=== PATIENT | male | born 1940 | race Caucasian/White ===

== ENCOUNTER 2016-11-11 09:18 | Inpatient (IN) | payer OTHER ==
[~2016-11-11] VITALS: Ht 177.8 cm; Wt 98.3 kg
[2016-11-11 10:26] LABS: BASO % 0.6 %; BASO ABS # 0.04 K/uL (0-0.2); COMPLETE YES; EOS % 1.4 %; HEMATOCRIT 44.9 % (42-52); LYMPH % 26.7 %; LYMPH ABS # 1.66 K/uL (1.2-3.4); MEAN CELL VOLUME 90.9 fL (80-100); MEAN CORPUSCULAR HEMOGLOBIN 32.2 pg (25-34); MEAN CORPUSCULAR HGB CONC 35.4 g/dl (32-36); MEAN PLATELET VOLUME 9.6 fL (7.4-10.4); MONO % 11.6 %; NEUT % 59.7 %; PLATELET COUNT 279 K/uL (130-400); RED BLOOD COUNT 4.94 M/uL (4.7-6.1); WHITE BLOOD COUNT 6.21 K/uL (4.8-10.8)
[2016-11-11 10:31] LABS: PROTHROMBIN TIME (PATIENT) 10.9 SECONDS (9.0-12.0)
[2016-11-11 10:33] LABS: BUN/CREATININE RATIO 11.5 (10-20); CALCIUM 9.2 mg/dl (8.5-10.1); CREATININE 1.2 mg/dl (0.60-1.40); POTASSIUM 3.8 mmol/L (3.5-5.1)
--- NOTE | 2016-11-11 10:38 | DIAGNOSTIC IMAGING REPORT ---
CT HEAD WITHOUT CONTRAST (CT) CLINICAL HISTORY: Stroke HEAD PAIN COMPARISON STUDY: No previous studies for comparison. TECHNIQUE: Axial CT of the brain is performed from the vertex to the skull base. IV contrast was not administered for this examination. CT DOSE: 537.48 mGy.cm FINDINGS: No intra or extra-axial mass lesions are visualized. There is no CT evidence of acute cortical infarction. There is no evidence of midline shift. There is no acute hemorrhage. No calvarial fractures are visualized. There is no evidence of pathologic ventricular dilatation. There is no evidence of acute sinusitis IMPRESSION: No acute intracranial findings. Electronically signed by: Oscar Leal M.D. 11/11/2016 10:36 AM Dictated Date/Time: 11/11/2016 10:35 AM
[2016-11-11 10:46] LABS: POINT OF CARE TROPONIN I < 0.030 ng/ml (0-0.045)
[2016-11-11] MEDS ORDERED: OPTIRAY 320 IV PRN (11:00)
[2016-11-11] MEDS ORDERED: ASPI81TA28 PO (11:03)
[2016-11-11] MEDS ORDERED: LISI-787 PO (11:03)
[2016-11-11] MEDS ORDERED: NTRGSL/4 UT (11:03)
[2016-11-11] MEDS ORDERED: METO25TA3 PO (11:03)
[2016-11-11] MEDS ORDERED: LPT/40 PO (11:03)
[2016-11-11] MEDS ORDERED: AMLO-110 PO (11:03)
--- NOTE | 2016-11-11 11:32 | DIAGNOSTIC IMAGING REPORT ---
CHEST CTA for PULMONARY ARTERIES CT DOSE: 555.84 mGy.cm HISTORY: Atypical chest pain. TECHNIQUE: Multiaxial CT images of the chest were performed following the intravenous administration of contrast to evaluate the pulmonary arteries. Maximal intensity projection images were also obtained. COMPARISON STUDY: None. FINDINGS: Normal caliber thoracic aorta with no evidence for dissection. The distal descending thoracic aorta is not well opacified which results in nondiagnostic evaluation for a dissection. Mild calcified plaque within the aorta. No pleural or pericardial effusions. Small hiatus hernia. The unenhanced liver, spleen, and adrenal glands are unremarkable. Colonic diverticulosis. Poststernotomy changes. No mediastinal or hilar lymphadenopathy. No filling defects within the pulmonary arteries to suggest pulmonary embolus. No pneumothorax. The central airways are patent. There are 2 subpleural nodular densities along the right minor fissure with the largest measuring 5 mm. IMPRESSION: 1. No evidence for pulmonary embolus. 2. There are 2 subpleural nodular densities within the right minor fissure within largest measuring 5 mm. Please refer to the chart below for recommended follow-up. Please refer to below summary of Fleischner criteria recommendations for follow-up of incidental CT nodules (Palmira Talley, Guidelines for management of small pulmonary nodules detected on CT scans: A statement from the Fleischner Society, Radiology 237: [phone].) SOLID NODULES Solitary nodule size: <6 mm * Low risk patients: no follow-up needed * high risk patients: optional CT at 12 months Solitary nodule size: 6-8 mm * Low risk patients: follow-up at 6-12 months, then consider further follow-up at 18-24 months * high risk patients: initial follow-up CT at 6-12 months and then at 18-24 months if no change Solitary nodule size: >8 mm * either low or high risk patients - consider follow-up CT at 3 months, and/or CT-PET, and/or biopsy Multiple nodules size: <6 mm * Low risk patients: no routine follow-up * high risk patients: optional CT at 12 months Multiple nodules size: 6-8 mm * Low risk patients: follow-up at 3-6 months, then consider further follow-up at 18-24 months * high risk patients: follow-up at 3-6 months, then at 18-24 months if no change Multiple nodules size: >8 mm * Low risk patients: follow-up at 3-6 months, then consider further follow-up at 18-24 months * high risk patients: follow-up at 3-6 months, then at 18-24 months if no change Note: newly detected indeterminate nodule in persons 35 years of age or older. * Low risk patients: minimal or absent history of smoking and/or other known risk factors * high risk patients: history of smoking or of other known risk factors (e.g. first degree relative with lung cancer, or exposure to asbestos, radon, uranium) * if a nodule up to 8 mm is partly solid or is ground glass further follow-up is required after 24 months to exclude possible slow growing adenocarcinoma (FRANCINE) SUBSOLID NODULES Solitary pure ground-glass nodule * nodule size <6 mm - no CT follow-up required * nodule size >=6 mm - follow-up CT at 6-12 months, then every 2 years until 5 years Solitary part-solid nodule * nodule size <6 mm - no CT follow-up required * nodule size >=6 mm - follow-up CT at 3-6 months. If unchanged, and solid component remains <6 mm, then annual follow-up for 5 years Multiple subsolid nodules * nodule size <6 mm - follow-up CT at 3-6 months, consider further follow-up at 2 and 4 years if stable * nodule size >=6 mm - follow-up CT at 3-6 months, subsequent management based on the most suspicious nodule(s) Electronically signed by: Viktor Shirley M.D. 11/11/2016 11:31 AM Dictated Date/Time: 11/11/2016 11:19 AM
[2016-11-11] MEDS ORDERED: ONDANSETRON INJ 2 MG/ML 2 ML VIAL IV STA (11:34)
[2016-11-11] MEDS ORDERED: MoRPHine SULFATE 4 MG/ML 1 ML CARP\\VIAL IV STA (11:34)
[2016-11-11] MEDS ORDERED: NITROGLYCERIN 0.4 MG SL PER TAB CHARGE SL PRN (12:45)
[2016-11-11] MEDS ORDERED: ONDANSETRON INJ 2 MG/ML 2 ML VIAL IV PRN (12:45)
[2016-11-11] MEDS ORDERED: CHOL1TAB PO (13:00)
[2016-11-11] MEDS ORDERED: PHARMACIST DISCHARGE MED REC CONSULT PRN (13:00)
[2016-11-11 13:58] LABS: ESTIMATED AVERAGE GLUCOSE 114 mg/dl; HA1C FLAG Normal (Normal)
--- NOTE | 2016-11-11 15:08 | DIAGNOSTIC IMAGING REPORT ---
MRI OF THE BRAIN WITHOUT CONTRAST CLINICAL HISTORY: Stroke RIGHT FACIAL PAIN AND NUMBNESS. COMPARISON STUDY: Noncontrast head CT dated 11/11/2016 FINDINGS: Sagittal T1, axial diffusion, proton density and T2 weighted axial, coronal FLAIR, and axial T1-weighted images were acquired. No intra or extra-axial mass lesions are visualized Axial diffusion-weighted images reveal no evidence of acute or subacute infarction. There is no evidence of ventricular dilatation. Proton density T2-weighted and FLAIR images reveal no significant intraparenchymal signal abnormalities. There are no abnormal flow voids. There is minor dependent mucosal thickening/fluid within the left maxillary sinus. IMPRESSION: Normal noncontrast MRI of the brain for age. Electronically signed by: Oscar Leal M.D. 11/11/2016 3:07 PM Dictated Date/Time: 11/11/2016 3:04 PM
--- NOTE | 2016-11-11 15:08 | DIAGNOSTIC IMAGING REPORT ---
MR ANGIOGRAM OF THE BRAIN CLINICAL HISTORY: Strokelike symptoms. COMPARISON STUDY: MRI of the brain performed concurrently on 11/11/2016. TECHNIQUE: 3-D [id number] MR angiography of the intracranial circulation is performed. 3-D tumble views are created and assessed. IV contrast was not administered for this examination. FINDINGS: The internal carotid arteries are widely patent bilaterally, as are the anterior and middle cerebral arteries. The vertebrobasilar system and posterior cerebral arteries are widely patent. The left vertebral artery is dominant and the right vertebral artery is diminutive. There is no aneurysm, high-grade stenosis, or focal vessel cutoff seen throughout the intracranial circulation. The brain parenchyma is normal as visualized. IMPRESSION: Unremarkable MR angiogram of the brain. Electronically signed by: Isaac Chinchilla M.D. 11/11/2016 3:07 PM Dictated Date/Time: 11/11/2016 3:04 PM
--- NOTE | 2016-11-11 15:10 | DIAGNOSTIC IMAGING REPORT ---
NECK MRA HISTORY: CVA TECHNIQUE: [id number] MRA of the neck was performed without intravenous contrast. All measurements were calculated based on NASCET criteria. COMPARISON STUDY: None. FINDINGS: The aortic arch and proximal great vessels are widely patent. There is no significant stenosis, occlusion, or dissection identified within the bilateral common carotid, internal carotid, or left vertebral arteries. The right vertebral artery is severely hypoplastic and not well visualized. Mild atherosclerotic plaque within the bilateral carotid bulbs. IMPRESSION: No significant stenosis, occlusion, or dissection identified within the carotid or left vertebral arteries. The right vertebral artery is severely hypoplastic and not well visualized. Electronically signed by: Viktor Shirley M.D. 11/11/2016 3:09 PM Dictated Date/Time: 11/11/2016 3:05 PM
[2016-11-11] MEDS: ACETAMINOPHEN 325 MG TAB PO PRN (15:46)
[2016-11-11 15:57] VITALS: BP 137/86; PULSE 61; TEMP 36.5; O2SAT 93; Ht 177.8 cm; Wt 98.3 kg
--- NOTE | 2016-11-11 16:18 | Neurology Consultation ---
Neurology Consultation Date of Consultation: Nov 11, 2016. Attending Physician: Yonathan Bustillos MD Primary Care Physician: Lexie Hassan D.O. Reason for Consultation: headache, right facial numbness History of Present Illness Source: patient Oni is a 76 year old who has a PMH HTN, DL, coronary artery disease. He presented to the ED from work with stabling pain he states started at the top of his head and radiated to his jaw. He states the pain was momentary but the numbness is still there. He state his has trigeminal neuralgia and he thinks that may be what he has. He states he has some numbness in his arms and feet but he has had that for years. He states he never gets headaches. He is not diabetic. He is a former smoker and ETOH use but quit 20 years ago. denies head injury, neck injury, falls, vision changes, slurred speech, SOB, abdominal pain, weakness, swallowing difficulty, pain with chewing or brushing hair or teeth,N,V. +chest pain for 5 years, +feeling loss in feet Social History Smoking Status: Former smoker Alcohol Use: former heavy EtOH use Drug Use: none Marital Status: Housing Status: lives with family Occupation Status: employed Allergies Coded Allergies: No Known Allergies (Unverified , 11/11/16) Current Inpatient Medications Current Inpatient Medications Medications (Trade) Dose Ordered Sig/Mo Route Start Time Stop Time Status Last Admin Dose Admin Ioversol (Optiray 320) 100 ml UD PRN IV 11/11/16 11:00 11/15/16 10:59 Acetaminophen (Tylenol Tab) 650 mg Q4H PRN PO 11/11/16 12:45 12/11/16 12:44 Ondansetron HCl (Zofran Inj) 4 mg Q6H PRN IV 11/11/16 12:45 12/11/16 12:44 Nitroglycerin (Nitrostat Tab) 0.4 mg UD PRN SL 11/11/16 12:45 12/11/16 12:44 Miscellaneous Information (Pharmacist Discharge Med Rec Consult) 1 ea UD PRN N/A 11/11/16 13:00 12/11/16 12:59 Amlodipine Besylate (Norvasc Tab) 5 mg DAILY PO 11/12/16 09:00 12/12/16 08:59 Aspirin (Ecotrin Tab) 81 mg DAILY PO 11/12/16 09:00 12/12/16 08:59 Atorvastatin Calcium (Lipitor Tab) 40 mg DAILY PO 11/12/16 09:00 12/12/16 08:59 Cholecalciferol (Vitamin D Tab) 400 inter.unit DAILY PO 11/12/16 09:00 12/12/16 08:59 HCTZ/Lisinopril (Prinzide 20-12.5MG Tab) 2 tab DAILY PO 11/12/16 09:00 12/12/16 08:59 Metoprolol Succinate (Toprol Xl Tab) 25 mg DAILY PO 11/12/16 09:00 12/12/16 08:59 Physical Exam Vital Signs (Past 24 Hrs): Date Time Temp Pulse Resp B/P (MAP) Pulse Ox O2 Delivery O2 Flow Rate FiO2 11/11/16 14:20 78 20 145/80 97 11/11/16 13:55 66 16 146/80 98 Room Air 11/11/16 13:01 52 11/11/16 11:37 62 16 140/72 97 Room Air 11/11/16 10:46 72 18 137/84 98 Room Air 11/11/16 09:49 72 11/11/16 09:45 98 Room Air 11/11/16 09:45 98 Room Air 11/11/16 09:25 36.7 79 18 166/94 95 Room Air Physical Exam: Constitutional: appearance nourished, healthy and normal Ears, Nose, Mouth and Throat: mucous membranes moist, no injection and skin normal, eyes normal Cardiovascular: normal S-1 and S-2 and regular rate and rhythm Respiratory: clear to auscultation (CTA) and no rales, rhonchi or wheeze Musculoskeletal: no peripheral edema and good distal pulses Skin: no stigmata of neurocutaneous disease noted and normal and intact Eyes: extraocular muscles intact (EOMI) and pupils equal, round and reactive to light (PERRL) NEUROLOGIC EXAMINATION: Mental status: Alert and interactive Oriented to full date and location Oriented to person Speech fluent with no evidence of aphasia Cranial Nerves smile eye brow raise symmetric, tongue midline Reflexes: Deep tendon reflexes were symmetrical and graded 2/5. Plantar responses were flexor. Sensory: decreased sensation to vibration intact GT proprioception Coordination: Romberg absent slight sway Gait/Stance: Posture normal. Gait normal: with steady with steps, base, turning, and tandem gait. Motor: Negative for pronator drift of out stretched arms with eyes closed. Strength: biceps triceps hand chief commercial officer 5/5 bilaterally, hip flex plantar flex ext 5/5 bilaterally Laboratory Results Past 24 Hours: 11/11/16 09:35 Red Blood Count 4.94, Mean Corpuscular Volume 90.9, Mean Corpuscular Hemoglobin 32.2, Mean Corpuscular Hemoglobin Concent 35.4, Mean Platelet Volume 9.6, Neutrophils (%) (Auto) 59.7, Lymphocytes (%) (Auto) 26.7, Monocytes (%) (Auto) 11.6, Eosinophils (%) (Auto) 1.4, Basophils (%) (Auto) 0.6, Neutrophils # (Auto ) 3.70, Lymphocytes # (Auto) 1.66, Monocytes # (Auto) 0.72, Eosinophils # (Auto ) 0.09, Basophils # (Auto) 0.04 11/11/16 09:35 Test 11/11/16 09:35 11/11/16 10:27 White Blood Count 6.21 K/uL (4.8-10.8) Red Blood Count 4.94 M/uL (4.7-6.1) Hemoglobin 15.9 g/dL (14.0-18.0) Hematocrit 44.9 % (42-52) Mean Corpuscular Volume 90.9 fL (80-100) Mean Corpuscular Hemoglobin 32.2 pg (25-34) Mean Corpuscular Hemoglobin Concent 35.4 g/dl (32-36) Platelet Count 279 K/uL (130-400) Mean Platelet Volume 9.6 fL (7.4-10.4) Neutrophils (%) (Auto) 59.7 % Lymphocytes (%) (Auto) 26.7 % Monocytes (%) (Auto) 11.6 % Eosinophils (%) (Auto) 1.4 % Basophils (%) (Auto) 0.6 % Neutrophils # (Auto) 3.70 K/uL (1.4-6.5) Lymphocytes # (Auto) 1.66 K/uL (1.2-3.4) Monocytes # (Auto) 0.72 K/uL (0.11-0.59) Eosinophils # (Auto) 0.09 K/uL (0-0.5) Basophils # (Auto) 0.04 K/uL (0-0.2) RDW Standard Deviation 42.4 fL (36.4-46.3) RDW Coefficient of Variation 12.8 % (11.5-14.5) Immature Granulocyte % (Auto) 0.0 % Immature Granulocyte # (Auto) 0.00 K/uL (0.00-0.02) Prothrombin Time 10.9 SECONDS (9.0-12.0) Prothromb Time International Ratio 1.0 (0.9-1.1) Activated Partial Thromboplast Time 26.6 SECONDS (21.0-31.0) Partial Thromboplastin Ratio 1.0 Anion Gap 7.0 mmol/L (3-11) Est Creatinine Clear Calc Drug Dose 63.6 ml/min Estimated GFR () 68.6 Estimated GFR (Non- 59.2 BUN/Creatinine Ratio 11.5 (10-20) Estimated Average Glucose 114 mg/dl Hemoglobin A1c 5.6 % (4.5-5.6) Calcium Level 9.2 mg/dl (8.5-10.1) Bedside D-Dimer > 450 ng/mlFEU (0-450) Bedside Troponin I < 0.030 ng/ml (0-0.045) Imaging MRI brain Normal noncontrast MRI of the brain for age. MRA neck- No significant stenosis, occlusion, or dissection identified within the carotid or left vertebral arteries. The right vertebral artery is severely hypoplastic and not well visualized. MRA head- Unremarkable MR angiogram of the brain. CTA chest abdomen- No evidence for pulmonary embolus. 2. There are 2 subpleural nodular densities within the right minor fissure within largest measuring 5 mm. Please refer to the chart below for recommended follow-up. Impression 76 year old male with lighting bolt headache and right face numbness Plan 1. MRI MRA head and neck normal for patients age 2. sed rate order r/o temporal arteritis although states no tenderness with palpation 3. chest pain-work up per primary team elevated d dimer 4. known peripheral neuropathy 5. patient with ice pick type headache- no history of migraines 6. cardiology for chest pain further recommendations to follow I have seen and discussed above patient with Dr Ophelia Clarke, neurology Pt without hx of headache, had a 1 sec severe pain from R vertex to R jaw associated with numbness in the R jaw lasting 1 sec (however face still does not feel the same). No n,v,other cranial sx. Was not exerting self or twisting head or neck. No jaw pain, has been well. [place] some imbalance the following day. No FMH aneurysm. Exam neck supple, No TA tenderness or cranial tenderness. PERRL, ON normal, no retinal hemorrhage, nml EOMI, facial sensation is intact, full strength, symm reflexes, nml FNF-HS, gait, tandem, Romberg neg. CT, MRI, MRA neg. Etiol is unknown. Ice-pick type headaches can occur in migraineurs, although pt no hx of migraine. The brevity and nml imaging and pt exam argue against aneurysmal SAH. I did discuss possibly performing an LP with the pt and he will give that some thought. Unlikely a headache disorder with neuralgiform pain given the lack of autonomic sx. I would complete a vascular sánchez, check an ESR (doubt TA) and monitor.The pt tells me he has had several occasions of unusual sx that no one was able to determine etiology including tingling acrossed the chest. TAB Clarke MD
[2016-11-11 16:47] VITALS: BP 134/75; PULSE 74
--- NOTE | 2016-11-11 17:05 | EMERGENCY ROOM VISIT NOTE ---
History Report prepared by Hafsa: Karlo Russ Under the Supervision of: Dr. Beto Duron M.D. First contact with patient: 10:02 Chief Complaint: CHEST PAIN Stated Complaint: CHEST PAIN, HEAD PAIN History of Present Illness The patient is a 76 year old male who presents to the Emergency Room with complaints of constant chest pain that began 1 year ago. He rates his pain a 4/ 10 in severity. His pain is mostly on the left side, but he occasionally experiences it on the right as well. He notes shortness of breath associated with his chest pain. His pain is not affected by exertion. His pain does not radiate down his arms, but is present in his left upper back. 7 years ago, the patient had a triple bypass surgery. He has had some chest pain since then. He notes that the pain has been constant over the past 2 months. Last year, he was seen in [place] for a cardiac stress test. He failed this test and was told that he had a blockage in his heart that did not need emergency surgery. He was placed onto an Aspirin regimen. 2 month ago, he went to [facility] to make sure everything was at baseline with his pain. 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 Yesterday morning, he experienced a completely new symptom which was a right sided headache. His pain has now resolved. However, he notes that he now is experiencing numbness to his right face that is somewhat present in his right arm as well. He denies any trouble with his speech , fevers, vomiting, diarrhea, or abdominal pain. He is having some difficulty walking secondary to feeling off balance. He has a past medical history of hypertension. He has not taken any Nitroglycerin this morning. Source of History: patient Onset: 7 years ago Position: chest Symptom Intensity: 4/10 Quality: dull Timing: constant Associated Symptoms: + headache, + SOB, + back pain, + numbness, No fevers, No vomiting, No abdominal pain, No diarrhea Review of Systems See HPI for pertinent positives & negatives. A total of 10 systems reviewed and were otherwise negative. Past Medical & Surgical Medical Problems: (1) CAD (coronary artery disease) (2) HTN (hypertension) Surgical Problems: (1) History of heart bypass surgery (2) History of incisional hernia repair Family History Omitted secondary to age. Social History Smoking Status: Former Smoker Drug Use: none Marital Status: Housing Status: lives with significant other Occupation Status: retired Current/Historical Medications Scheduled Amlodipine (Norvasc), 5 MG PO DAILY Aspirin (Aspirin Ec), 81 MG PO DAILY Atorvastatin (Lipitor), 40 MG PO DAILY Cholecalciferol (Vitamin D-3), 1 TAB PO DAILY Lisinopril/Hctz (Zestoretic 20MG/12.5MG), 2 TAB PO DAILY Metoprolol Succinate (Toprol Xl), 25 MG PO DAILY Nitroglycerin (Nitrostat), 0.4 MG UT PRN Allergies Coded Allergies: No Known Allergies (Unverified , 11/11/16) Physical Exam Vital Signs Date Time Temp Pulse Resp B/P (MAP) Pulse Ox O2 Delivery O2 Flow Rate FiO2 11/11/16 11:37 62 16 140/72 97 Room Air 11/11/16 10:46 72 18 137/84 98 Room Air 11/11/16 09:49 72 11/11/16 09:45 98 Room Air 11/11/16 09:45 98 Room Air 11/11/16 09:25 36.7 79 18 166/94 95 Room Air Physical Exam Constitutional: Vital signs reviewed. Eyes: Pupils are equal round reactive to light. Conjunctiva are noninjected. ENT: Pharynx is clear without erythema or exudate. Mucous membranes are moist. Neck supple without meningeal signs. Respiratory: Clear to auscultation bilaterally. Breath sounds are equal bilaterally. Cardiovascular: Regular rate and rhythm. No rubs or gallops. GI: Soft, nondistended and nontender. Bowel sounds are present. Musculoskeletal: No peripheral edema. No lower extremity tenderness. Integumentary: No cyanosis. Neurological: The patient is awake and alert. Cranial nerves II-XII are intact. Motor is 5 out of 5 all extremities. Sensation is intact to light touch all extremities. Normal speech. No pronator drift. No limb ataxia. Psychiatric: Normal affect. Medical Decision & Procedures ER Provider Diagnostic Interpretation: Radiology results as stated below per my review and the radiologist's interpretation: CT HEAD WITHOUT CONTRAST (CT) CLINICAL HISTORY: Stroke HEAD PAIN COMPARISON STUDY: No previous studies for comparison. TECHNIQUE: Axial CT of the brain is performed from the vertex to the skull base. IV contrast was not administered for this examination. CT DOSE: 537.48 mGy.cm FINDINGS: No intra or extra-axial mass lesions are visualized. There is no CT evidence of acute cortical infarction. There is no evidence of midline shift. There is no acute hemorrhage. No calvarial fractures are visualized. There is no evidence of pathologic ventricular dilatation. There is no evidence of acute sinusitis IMPRESSION: No acute intracranial findings. Electronically signed by: Oscar Leal M.D. 11/11/2016 10:36 AM Dictated Date/Time: 11/11/2016 10:35 AM CHEST CTA for PULMONARY ARTERIES CT DOSE: 555.84 mGy.cm HISTORY: Atypical chest pain. TECHNIQUE: Multiaxial CT images of the chest were performed following the intravenous administration of contrast to evaluate the pulmonary arteries. Maximal intensity projection images were also obtained. COMPARISON STUDY: None. FINDINGS: Normal caliber thoracic aorta with no evidence for dissection. The distal descending thoracic aorta is not well opacified which results in nondiagnostic evaluation for a dissection. Mild calcified plaque within the aorta. No pleural or pericardial effusions. Small hiatus hernia. The unenhanced liver, spleen, and adrenal glands are unremarkable. Colonic diverticulosis. Poststernotomy changes. No mediastinal or hilar lymphadenopathy. No filling defects within the pulmonary arteries to suggest pulmonary embolus. No pneumothorax. The central airways are patent. There are 2 subpleural nodular densities along the right minor fissure with the largest measuring 5 mm. IMPRESSION: 1. No evidence for pulmonary embolus. 2. There are 2 subpleural nodular densities within the right minor fissure within largest measuring 5 mm. Please refer to the chart below for recommended follow-up. Please refer to below summary of Fleischner criteria recommendations for follow-up of incidental CT nodules (Palmira Talley, Guidelines for management of small pulmonary nodules detected on CT scans: A statement from the Fleischner Society, Radiology 237: [phone].) SOLID NODULES Solitary nodule size: <6 mm * Low risk patients: no follow-up needed * high risk patients: optional CT at 12 months Solitary nodule size: 6-8 mm * Low risk patients: follow-up at 6-12 months, then consider further follow-up at 18-24 months * high risk patients: initial follow-up CT at 6-12 months and then at 18-24 months if no change Solitary nodule size: >8 mm * either low or high risk patients - consider follow-up CT at 3 months, and/or CT-PET, and/or biopsy Multiple nodules size: <6 mm * Low risk patients: no routine follow-up * high risk patients: optional CT at 12 months Multiple nodules size: 6-8 mm * Low risk patients: follow-up at 3-6 months, then consider further follow-up at 18-24 months * high risk patients: follow-up at 3-6 months, then at 18-24 months if no change Multiple nodules size: >8 mm * Low risk patients: follow-up at 3-6 months, then consider further follow-up at 18-24 months * high risk patients: follow-up at 3-6 months, then at 18-24 months if no change Note: newly detected indeterminate nodule in persons 35 years of age or older. * Low risk patients: minimal or absent history of smoking and/or other known risk factors * high risk patients: history of smoking or of other known risk factors (e.g. first degree relative with lung cancer, or exposure to asbestos, radon, uranium) * if a nodule up to 8 mm is partly solid or is ground glass further follow-up is required after 24 months to exclude possible slow growing adenocarcinoma (FRANCINE) SUBSOLID NODULES Solitary pure ground-glass nodule * nodule size <6 mm - no CT follow-up required * nodule size >=6 mm - follow-up CT at 6-12 months, then every 2 years until 5 years Solitary part-solid nodule * nodule size <6 mm - no CT follow-up required * nodule size >=6 mm - follow-up CT at 3-6 months. If unchanged, and solid component remains <6 mm, then annual follow-up for 5 years Multiple subsolid nodules * nodule size <6 mm - follow-up CT at 3-6 months, consider further follow-up at 2 and 4 years if stable * nodule size >=6 mm - follow-up CT at 3-6 months, subsequent management based on the most suspicious nodule(s) Electronically signed by: Viktor Shirley M.D. 11/11/2016 11:31 AM Dictated Date/Time: 11/11/2016 11:19 AM Laboratory Results 11/11/16 09:35 Red Blood Count 4.94, Mean Corpuscular Volume 90.9, Mean Corpuscular Hemoglobin 32.2, Mean Corpuscular Hemoglobin Concent 35.4, Mean Platelet Volume 9.6, Neutrophils (%) (Auto) 59.7, Lymphocytes (%) (Auto) 26.7, Monocytes (%) (Auto) 11.6, Eosinophils (%) (Auto) 1.4, Basophils (%) (Auto) 0.6, Neutrophils # (Auto ) 3.70, Lymphocytes # (Auto) 1.66, Monocytes # (Auto) 0.72, Eosinophils # (Auto ) 0.09, Basophils # (Auto) 0.04 11/11/16 09:35 Test 11/11/16 09:35 11/11/16 10:27 White Blood Count 6.21 K/uL (4.8-10.8) Red Blood Count 4.94 M/uL (4.7-6.1) Hemoglobin 15.9 g/dL (14.0-18.0) Hematocrit 44.9 % (42-52) Mean Corpuscular Volume 90.9 fL (80-100) Mean Corpuscular Hemoglobin 32.2 pg (25-34) Mean Corpuscular Hemoglobin Concent 35.4 g/dl (32-36) Platelet Count 279 K/uL (130-400) Mean Platelet Volume 9.6 fL (7.4-10.4) Neutrophils (%) (Auto) 59.7 % Lymphocytes (%) (Auto) 26.7 % Monocytes (%) (Auto) 11.6 % Eosinophils (%) (Auto) 1.4 % Basophils (%) (Auto) 0.6 % Neutrophils # (Auto) 3.70 K/uL (1.4-6.5) Lymphocytes # (Auto) 1.66 K/uL (1.2-3.4) Monocytes # (Auto) 0.72 K/uL (0.11-0.59) Eosinophils # (Auto) 0.09 K/uL (0-0.5) Basophils # (Auto) 0.04 K/uL (0-0.2) RDW Standard Deviation 42.4 fL (36.4-46.3) RDW Coefficient of Variation 12.8 % (11.5-14.5) Immature Granulocyte % (Auto) 0.0 % Immature Granulocyte # (Auto) 0.00 K/uL (0.00-0.02) Prothrombin Time 10.9 SECONDS (9.0-12.0) Prothromb Time International Ratio 1.0 (0.9-1.1) Activated Partial Thromboplast Time 26.6 SECONDS (21.0-31.0) Partial Thromboplastin Ratio 1.0 Anion Gap 7.0 mmol/L (3-11) Est Creatinine Clear Calc Drug Dose 63.6 ml/min Estimated GFR () 68.6 Estimated GFR (Non- 59.2 BUN/Creatinine Ratio 11.5 (10-20) Estimated Average Glucose 114 mg/dl Hemoglobin A1c 5.6 % (4.5-5.6) Calcium Level 9.2 mg/dl (8.5-10.1) Bedside D-Dimer > 450 ng/mlFEU (0-450) Bedside Troponin I < 0.030 ng/ml (0-0.045) Laboratory results as reviewed by me. Medications Administered Medications (Trade) Dose Ordered Sig/Mo Route Start Time Stop Time Status Last Admin Dose Admin Morphine Sulfate (MoRPHine SULFATE INJ) 4 mg NOW STAT IV 11/11/16 11:34 11/11/16 11:35 DC 11/11/16 11:57 4 MG Ondansetron HCl (Zofran Inj) 4 mg NOW STAT IV 11/11/16 11:34 11/11/16 11:35 DC 11/11/16 11:57 4 MG ECG Indication: chest pain Rate (beats per minute): 64 Rhythm: sinus rhythm Findings: Q waves (Lead 3), other (Sinus arrhythmia) ED Course 1002: The patient was evaluated in room B10. A complete history and physical exam was performed. 1102: I reassessed the patient at this time. We discussed his test results. I will be ordering a CT scan for further testing. 1134: Ordered Zofran Inj 4 mg IV, Morphine Sulfate 4 mg IV 1136: The patient is still having his chest pain that he rates a 4/10 in severity. He still has a headache with numbness to his right side. We discussed his results, including his pulmonary nodule. He will be seen as an inpatient for further treatment. 1210: I spoke with Gabriela Aguilera, at this time. She will be evaluating the patient for further management and care. Medical Decision This is a 76-year-old male who presents with chest pain, headache and right- sided numbness. Differential diagnosis includes pleurisy, HI, unstable angina, pulmonary embolism, CVA, migraine. I did perform a limited focused review of portions of the patient's old chart on the electronic medical record. The patient has had no recent pertinent visits to this hospital. Blood Pressure Screening: Patient was found to have an elevated blood pressure and was referred to their primary doctor for recheck and further treatment. Medication Reconciliation: I attest that I have personally reviewed the patient' s current medication list. I did evaluate the patient as noted above. He is presenting with chest pain which she has had intermittently since his surgery. He says it's been constant and worse over the past 2 months. He also complains of right-sided headache with right facial and hand numbness. He is neurologically intact currently although continues to state that he has numbness to that side. IV access was established. The patient was placed on a continuous classroom monitor. I did order and personally review the patient's 12-lead EKG and chest x-ray as described above. I did order and review the patient's blood work as noted in the electronic medical record. Troponin is negative. D-dimer is elevated. I did order a CT of the head and chest. I did review the images myself as well as the radiology report as described above. There is no evidence of stroke or bleed. There is no evidence of pulmonary embolism. He does have a pulmonary nodule which I discussed with him. I did treat patient with IV morphine and Zofran. I did recommend hospitalization for further evaluation of his neurologic symptoms and chest pain. I did discuss the case with the Hospitalist and case assistant. Consults Time Called: 1200 Consulting Physician: Gabriela Aguilera Returned Call: 1210 She will be evaluating the patient for further management and care. Impression Primary Impression: Numbness on right side Additional Impressions: Disequilibrium Acute headache Left sided chest pain Scribe Attestation The scribe's documentation has been prepared under my direct and personally reviewed by me in its entirety. I confirm that the note above accurately reflects all work, treatment, procedures, and medical decision making performed by me. Departure Information Dispostion Being Evaluated By Hospitalist Referrals No Doctor, Assigned (PCP) Patient Instructions My [facility] Problem Qualifiers Additional Impressions: Acute headache Headache type: unspecified Intractability: not intractable Qualified Codes : R51 - Headache
--- NOTE | 2016-11-11 17:13 | History and Physical ---
History & Physical Date & Time of Service: Nov 11, 2016 ~ 12:30 Chief Complaint: Headache, Right Facial Numbness Primary Care Physician: Lexie Hassan D.O. History of Present Illness 76 year old male who presents to the ER with headache and right facial numbness. Patient reports he was at work last night and he had a sudden on set of right sided headache that radiated into the right side of his face and jaw. Patient reports associated right facial numbness. He reports the pain has eased up since yesterday however has not completely resolved. No blurred or double vision. He denies associated slurred speech, facial droop, or difficulty swallowing. He denies any unilateral limb numbness or tingling. He reports chronic chest pain that has been present for the past several years. He reports the pain stays at the same intensity. He describes the pain as being located on the left side of his chest and describes it as a muscle ache. He reports shortness of breath while trying to sleep at night that has been present for the past 6 months. He notes edema to his LLE for the past couple of weeks. He denies lightheadedness, dizziness, diaphoresis, or syncopal events. He denies abdominal pain, nausea, vomiting, or diarrhea. No fever or chills. He denies urinary symptoms. In the ER, head CT is negative, CTA chest is negative for PE, EKG does not show any acute ST changes, and initial troponin is negative. Patient was given morphine and Zofran. Past Medical/Surgical History Medical Problems: (1) CAD (coronary artery disease) Permanent Comment: 2010 - CABG x 3 2014 - abnormal thallium scan suggestive of ischemia however medical management was suggested Status: Chronic (2) HTN (hypertension) Status: Chronic Surgical Problems: (1) History of heart bypass surgery Status: Resolved (2) History of incisional hernia repair Status: Chronic Family History FH: CAD (coronary artery disease) FATHER BROTHER Stroke FATHER Social History Smoking Status: Former Smoker Alcohol Use: occasionally Immunizations History of Influenza Vaccine: Yes Influenza Vaccine Date: Feb 15, 2016 History of Pneumococcal: Yes Pneumococcal Date: Nov 02, 2009 Allergies Coded Allergies: No Known Allergies (Unverified , 11/11/16) Home Medications Scheduled Amlodipine (Norvasc), 5 MG PO DAILY Aspirin (Aspirin Ec), 81 MG PO DAILY Atorvastatin (Lipitor), 40 MG PO DAILY Cholecalciferol (Vitamin D-3), 1 TAB PO DAILY Lisinopril/Hctz (Zestoretic 20MG/12.5MG), 2 TAB PO DAILY Metoprolol Succinate (Toprol Xl), 25 MG PO DAILY Nitroglycerin (Nitrostat), 0.4 MG UT PRN Review of Systems Constitutional- no fever; no weight loss Eyes- no acute visual changes ENT- no sinus drainage; no pharyngitis Pulmonary- no cough, no wheezing, no shortness of breath Cardiac- (+) as noted above GI- no nausea, no vomiting, no diarrhea, no melena, no hematochezia - no dysuria, no hematuria Musculoskeletal- no arthralgias, no myalgias Derm- no rashes, no new skin lesions, no changing skin lesions Hematologic- no unusual bruising, no unusual bleeding Lymphatics- no adenopathy Endocrine- no polyuria or polydipsia; no heat or cold intolerance Neuro- (+) as noted above Psych- no anxiety, no depression Physical Exam Vital Signs Date Time Temp Pulse Resp B/P (MAP) Pulse Ox O2 Delivery O2 Flow Rate FiO2 11/11/16 14:20 78 20 145/80 97 11/11/16 13:55 66 16 146/80 98 Room Air 11/11/16 13:01 52 11/11/16 11:37 62 16 140/72 97 Room Air 11/11/16 10:46 72 18 137/84 98 Room Air 11/11/16 09:49 72 11/11/16 09:45 98 Room Air 11/11/16 09:45 98 Room Air 11/11/16 09:25 36.7 79 18 166/94 95 Room Air General Appearance: no apparent distress Head: normocephalic Eyes: normal inspection ENT: hearing grossly normal Neck: supple, no JVD Respiratory/Chest: lungs clear, normal breath sounds, no respiratory distress Cardiovascular: regular rate, rhythm, no edema, normal peripheral pulses Abdomen/GI: normal bowel sounds, non tender, soft Extremities/Musculoskelatal: normal inspection, no calf tenderness Neurologic/Psych: alert, oriented x 3, + pertinent finding (patient reports decreased sensation to right side of face, no other focal deficits noted) Skin: normal color, warm/dry Diagnostics Laboratory Results Results Past 24 Hours Test 11/11/16 09:35 11/11/16 10:27 Range/Units White Blood Count 6.21 4.8-10.8 K/uL Red Blood Count 4.94 4.7-6.1 M/uL Hemoglobin 15.9 14.0-18.0 g/dL Hematocrit 44.9 42-52 % Mean Corpuscular Volume 90.9 80-100 fL Mean Corpuscular Hemoglobin 32.2 25-34 pg Mean Corpuscular Hemoglobin Concent 35.4 32-36 g/dl Platelet Count 279 130-400 K/uL Mean Platelet Volume 9.6 7.4-10.4 fL Neutrophils (%) (Auto) 59.7 % Lymphocytes (%) (Auto) 26.7 % Monocytes (%) (Auto) 11.6 % Eosinophils (%) (Auto) 1.4 % Basophils (%) (Auto) 0.6 % Neutrophils # (Auto) 3.70 1.4-6.5 K/uL Lymphocytes # (Auto) 1.66 1.2-3.4 K/uL Monocytes # (Auto) 0.72 0.11-0.59 K/uL Eosinophils # (Auto) 0.09 0-0.5 K/uL Basophils # (Auto) 0.04 0-0.2 K/uL RDW Standard Deviation 42.4 36.4-46.3 fL RDW Coefficient of Variation 12.8 11.5-14.5 % Immature Granulocyte % (Auto) 0.0 % Immature Granulocyte # (Auto) 0.00 0.00-0.02 K/uL Prothrombin Time 10.9 9.0-12.0 SECONDS Prothromb Time International Ratio 1.0 0.9-1.1 Activated Partial Thromboplast Time 26.6 21.0-31.0 SECONDS Partial Thromboplastin Ratio 1.0 Sodium Level 140 136-145 mmol/L Potassium Level 3.8 3.5-5.1 mmol/L Chloride Level 104 98-107 mmol/L Carbon Dioxide Level 29 21-32 mmol/L Anion Gap 7.0 3-11 mmol/L Blood Urea Nitrogen 14 7-18 mg/dl Creatinine 1.20 0.60-1.40 mg/dl Est Creatinine Clear Calc Drug Dose 63.6 ml/min Estimated GFR () 68.6 Estimated GFR (Non- 59.2 BUN/Creatinine Ratio 11.5 10-20 Random Glucose 134 70-99 mg/dl Estimated Average Glucose 114 mg/dl Hemoglobin A1c 5.6 4.5-5.6 % Calcium Level 9.2 8.5-10.1 mg/dl Bedside D-Dimer > 450 0-450 ng/mlFEU Bedside Troponin I < 0.030 0-0.045 ng/ml Diagnostic Radiology CT HEAD IMPRESSION: No acute intracranial findings. CTA CHEST IMPRESSION 1. No evidence for pulmonary embolus. 2. There are 2 subpleural nodular densities within the right minor fissure within largest measuring 5 mm. Please refer to the chart below for recommended follow-up. Impression Assessment and Plan HEADACHE, RIGHT FACIAL NUMBNESS - admit to tele - patient presenting with right sided headache with radiation into the right side of his face with associated right facial numbness, no other focal deficits noted - consider symptoms due to migraine however will rule out CVA - brain MRI/MRA, neck MRA, echo - neuro checks - continue ASA - neuro consult, input appreciated CHEST PAIN, HX CAD - chest pain seems to be a chronic issue that has been going on for several years - hx of CABG x 3 in 2009, thallium scan in 2014 that was abnormal however medical management recommended - follows with Dr. Linda with [place] - initial troponin negative, EKG without acute ST changes - continue to cycle cardiac enzymes - continue ASA, beta rufino, and statin - CTA negative for PE - cardio consult, input appreciated HTN - BP controlled, continue lisinopril/HCTZ, amlodipine, metoprolol PULMONARY NODULES - outpatient follow up DVT PROPHYLAXIS - SCDs until brain MRI resulted DISPO - In my clinical judgment this beneficiary meets acute admission criteria, established by [facility], that includes being hospitalized through two midnights. ATTENDING ADDENDUM care coordinated with JUDIT Porter please refer to her notes for full details, I agree with her notes patient seen and examined, records reviewed by myself as well on exam, patient seen resting in bed, comfortable states the "pain" on the right side of his head radiating to his jaw is improving report right sided neck pain, worse with rotating head to the right denies other focal neuro deficits denies chest pain no other symptoms VS noted and reviewed oriented x 3 , not in distress, speaks in sentences with no effort nor accessory muscle use neck moderate tenderness on the right sided neck muscles normal rate, regular rhythm, no murmurs clear breath sounds bilaterally non distended, soft, nontender no bipedal edema, erythema, warmth no neuro deficits WBC 6.2 crea 1.2 troponin negative Brain MRI: no acute process ASSESSMENT/PLAN> RIGHT SIDED HEADACHE, RADIATING TO JAW - Brain MRI and MRA unremarkable - possible migraine Neurology consulted RIGHT SIDED NECK PAIN LIKELY MUSCULAR STRAIN - PRN Flexeril, warm compress CHEST PAIN - monitor cardiac markers - Cardiology consulted other diagnoses and plan of care as per JUDIT Porter's notes Yonathan Bustillos MD VTE Prophylaxis VTE Risk Assessment Done? Y/N: Yes Risk Level: Moderate
--- NOTE | 2016-11-11 17:24 | DIAGNOSTIC IMAGING REPORT ---
BILATERAL LOWER EXTREMITY VENOUS DOPPLER HISTORY: Pain. Edema. edema COMPARISON STUDY: None. FINDINGS: There is normal compressibility, flow, and augmentation within the bilateral lower extremity deep venous systems. IMPRESSION: No DVT within the right or left lower extremity. Electronically signed by: Antony Nieves M.D. 11/11/2016 5:23 PM Dictated Date/Time: 11/11/2016 5:22 PM
[2016-11-11] MEDS ORDERED: CYCLOBENZAPRINE HCL 5 MG TAB PO PRN (18:45)
[2016-11-11] MEDS ORDERED: CYCLOBENZAPRINE HCL 5 MG TAB PO ONE (19:30)
[2016-11-11 20:00] VITALS: O2SAT 93
[2016-11-11 20:02] VITALS: BP 142/82; PULSE 54; TEMP 36.5; O2SAT 92
--- NOTE | 2016-11-11 23:21 | CARDIOLOGY CONSULTATION ---
DATE OF CONSULTATION: 11/11/2016 REFERRING: JUDIT Durán. PRIMARY CARE PHYSICIAN: Dr. Lexie Hassan in [place]. INDICATIONS: Sharp headache and facial pain, chronic chest pain. HISTORY OF PRESENT ILLNESS: The patient is a 76-year-old male, whose history, per discussion and review of records, is notable for atherosclerotic coronary disease, having undergone prior coronary bypass grafting x3 in 2005 at [facility] for angina pectoris. His underlying medical risk factors include hypertension and hyperlipidemia. The patient notes since surgery, he has had chronic low-grade chest discomfort, which has been continuous. He has been evaluated, including repeat diagnostic cardiac catheterization, per patient, after abnormal stress testing. Cardiac catheterization was notable for vascular disease, amenable to medical therapy. He has been followed for stable class 2 angina pectoris for a multitude of years without change in functional capacity, chest pains with exertion, tachy palpitations, syncope or near syncope. Blood pressure and lipids have been well controlled. He follows with cardiology in [place] with Dr. Linda. He notes no edema, notes no fevers, chills or unexplained infections. Main complaint today was a sharp pain, beginning at the top of his head, then radiating across his face and eye. Symptoms are persistent, they have eased, but not been relieved. Chronic chest pain is unchanged. Blood pressures, per patient, have been generally well controlled. He has been taking medications appropriately. On further review of systems, he notes no bleeding difficulties, notes no melena, hematochezia, dysuria or hematuria. Notes no rash or overt arthritic complaints. 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 PAST SURGICAL HISTORY: Notable for coronary bypass grafting, as described, and a past herniorrhaphy. ALLERGIES: None. MEDICATIONS: Prior to hospitalization were atorvastatin 40 mg p.o. every day, lisinopril/hydrochlorothiazide 20/12.5 mg per day, Toprol-XL 25 mg p.o. every day, vitamin D 400 units daily, amlodipine 5 mg p.o. every day, aspirin 81 mg per day. PHYSICAL EXAMINATION: VITAL SIGNS: Heart rate 72, blood pressure is 137/86, with initial blood pressure on presentation of 166/94. HEENT: Normocephalic and atraumatic. There is no specific scalp or facial tenderness. NECK: Thick. There is no jugular venous distention. There are no carotid bruits. LUNGS: Clear to auscultation. CARDIOVASCULAR: Regular with normal S1, S2. There are occasional audible atrial ectopic beats. There is no murmur, gallop or rub. CHEST: Incision is well healed. ABDOMEN: Soft, nontender. There is no palpable hepatosplenomegaly. There is no hepatojugular reflux. EXTREMITIES: Without cyanosis or clubbing. There is no peripheral edema. There are intact distal pulses 2/4. There is no brachial or femoral delay. There are no audible abdominal or femoral bruits. LABORATORY DATA: EKG reveals sinus rhythm with sinus arrhythmia and atrial ectopic beats and otherwise, no acute changes and similar to prior studies done at the outpatient, most recently June 2016. LABORATORY STUDIES: White cell count 6.2, hemoglobin is 15.9, hematocrit is 44.9. Sodium is 140, potassium is 3.8, chloride is 104, bicarbonate is 29. BUN is 14, creatinine is 1.2, glucose is 134, [id number] troponin is negative. C-reactive protein and sed rates are pending. Chest CT revealed no evidence of pulmonary embolus with a subpleural nodule densities to be followed. The patient also underwent neurologic studies, including MRI/MRA with normal noncontrast MRI and MRAs and no obstructive carotid disease. IMPRESSION: A 76-year-old male with underlying history of atherosclerotic coronary disease with prior coronary bypass grafting and stable class 2 angina pectoris, as well as chronic chest pain and discomfort, noncardiac in nature, continuous at low levels without relief and no acute changes or chronic cardiac decline. He presents now with headache and facial pain, ill-defined. Neurology has been consulted. The only issue, given patient's underlying atrial ectopy, would supplement potassium. He is on an antihypertensive with diuretic, would add low-dose potassium 10 mEq once daily. No other adjustments will be made. The patient is on appropriate therapies, including lipid reduction, beta-rufino, ROBERTO inhibitor and aspirin. The patient will continue to follow with his primary moto mix operator, Dr. Linda, with a scheduled appointment in December 2016. CLAY
[2016-11-12] VITALS: BP 139/83; PULSE 47; TEMP 36.3; O2SAT 97
[2016-11-12 00:40] VITALS: O2SAT 93
[2016-11-12 04:00] VITALS: BP 134/77; PULSE 58; TEMP 36.5; O2SAT 97
[2016-11-12 04:04] VITALS: O2SAT 93
[2016-11-12 06:00] LABS: BASO % 0.7 %; BASO ABS # 0.05 K/uL (0-0.2); COMPLETE YES; EOS % 2.3 %; HEMATOCRIT 43.7 % (42-52); IG% 0.1 %; LYMPH % 33.9 %; LYMPH ABS # 2.46 K/uL (1.2-3.4); MEAN CELL VOLUME 91.2 fL (80-100); MEAN CORPUSCULAR HEMOGLOBIN 31.7 pg (25-34); MEAN CORPUSCULAR HGB CONC 34.8 g/dl (32-36); MEAN PLATELET VOLUME 9.7 fL (7.4-10.4); MONO % 10.5 %; NEUT % 52.5 %; PLATELET COUNT 251 K/uL (130-400); RED BLOOD COUNT 4.79 M/uL (4.7-6.1); WHITE BLOOD COUNT 7.25 K/uL (4.8-10.8)
[2016-11-12 06:47] LABS: BUN/CREATININE RATIO 13.8 (10-20); CHOLESTEROL/HDL RATIO 2.7; CREATININE 1.2 mg/dl (0.60-1.40); POTASSIUM 3.9 mmol/L (3.5-5.1)
[2016-11-12 08:10] VITALS: BP 142/77; PULSE 61; TEMP 36.5; O2SAT 95
[2016-11-12] MEDS: ACETAMINOPHEN 325 MG TAB PO PRN (08:54)
[2016-11-12] MEDS ORDERED: CHOLECALCIFEROL 400 INTER.UNIT TAB PO SCH (09:00)
[2016-11-12] MEDS ORDERED: LISINOPRIL/HCTZ 20/12.5MG TAB PO SCH (09:00)
[2016-11-12] MEDS ORDERED: METOPROLOL SUCC 25MG EXT REL TAB PO SCH (09:00)
[2016-11-12] MEDS ORDERED: ASPIRIN 81 MG ECTAB PO SCH (09:00)
[2016-11-12] MEDS ORDERED: AMLODIPINE BESYLATE 5 MG TAB PO SCH (09:00)
[2016-11-12] MEDS ORDERED: ATORVASTATIN 40 MG TAB PO SCH (09:00)
--- NOTE | 2016-11-12 11:14 | Progress Note ---
Medicine Progress Note Date & Time of Visit: Nov 12, 2016 at 11:05. Subjective patient seen resting in bedside chair comfortable in good spirits states he feels better overall no recurrence of pain in the right temporo-frontal region or face no other focal neuro symptoms no chest pain, dyspnea, dizziness, palpitations neck pain has resolved, Flexeril helped denies other symptoms states he is ready and would like to be discharged today Objective Last 8 Hrs Date Time Temp Pulse Resp B/P (MAP) Pulse Ox O2 Delivery O2 Flow Rate FiO2 11/12/16 08:10 36.5 61 16 142/77 (98) 95 11/12/16 04:04 93 Room Air 11/12/16 04:00 36.5 58 18 134/77 (96) 97 Room Air Physical Exam: General- oriented x 3, not in distress, speaks in sentences with no effort Eyes- EOMI, anicteric ENT- oropharynx clear Neck- supple, no JVD, no adenopathy, mild tenderness on the muscles of the right neck Lungs- clear breath sounds bilaterally Heart- regular rhythm; no murmur, normal rate Abdomen- normal bowel sounds, soft, nontender Extremities- no pretibial edema, no calf tenderness Neuro- alert, oriented x 3; no gross focal deficits Skin- warm & dry Laboratory Results: Last 24 Hours Test 11/11/16 17:50 11/12/16 05:21 Erythrocyte Sedimentation Rate 4 mm/hr C-Reactive Protein < 0.29 mg/dl White Blood Count 7.25 K/uL Red Blood Count 4.79 M/uL Hemoglobin 15.2 g/dL Hematocrit 43.7 % Mean Corpuscular Volume 91.2 fL Mean Corpuscular Hemoglobin 31.7 pg Mean Corpuscular Hemoglobin Concent 34.8 g/dl Platelet Count 251 K/uL Mean Platelet Volume 9.7 fL Neutrophils (%) (Auto) 52.5 % Lymphocytes (%) (Auto) 33.9 % Monocytes (%) (Auto) 10.5 % Eosinophils (%) (Auto) 2.3 % Basophils (%) (Auto) 0.7 % Neutrophils # (Auto) 3.80 K/uL Lymphocytes # (Auto) 2.46 K/uL Monocytes # (Auto) 0.76 K/uL Eosinophils # (Auto) 0.17 K/uL Basophils # (Auto) 0.05 K/uL RDW Standard Deviation 43.2 fL RDW Coefficient of Variation 12.8 % Immature Granulocyte % (Auto) 0.1 % Immature Granulocyte # (Auto) 0.01 K/uL Sodium Level 139 mmol/L Potassium Level 3.9 mmol/L Chloride Level 103 mmol/L Carbon Dioxide Level 29 mmol/L Anion Gap 7.0 mmol/L Blood Urea Nitrogen 17 mg/dl Creatinine 1.20 mg/dl Est Creatinine Clear Calc Drug Dose 63.5 ml/min Estimated GFR () 68.6 Estimated GFR (Non- 59.2 BUN/Creatinine Ratio 13.8 Random Glucose 130 mg/dl Calcium Level 9.0 mg/dl Triglycerides Level 112 mg/dl Cholesterol Level 131 mg/dl HDL Cholesterol 49 mg/dl LDL Cholesterol, Calculated 60 mg/dl VLDL Cholesterol, Calculated 22 mg/dl Cholesterol/HDL Ratio 2.7 Chemistry Specimen Hemolysis Assessment & Plan EPISODE OF PAIN ON THE RIGHT TEMPORO-FRONTAL REGION - patient presenting sudden onset of pain- around 1 second- right sided with radiation into the right side of his face with associated right facial numbness , no other focal deficits noted - brain MRI/MRA, neck MRA: no acute process - evaluated by Neurologist possible ice-pick headache, migraine no other intervention at this time - symptoms resolved follow up as outpatient CHEST PAIN, HX CAD - chest pain seems to be a chronic issue that has been going on for several years - hx of CABG x 3 in 2009, thallium scan in 2014 that was abnormal however medical management recommended - cardiac markers negative EKG without acute ST changes CTA negative for PE - evaluated by Cardiology no other testing at this time - continue ASA, beta rufino, and statin add potassium 10meq po daily RIGHT SIDED NECK PAIN - likely muscular strain - improved with Flexeril - advised Flexeril PRN, warm compress, neck exercises, no lifting HTN - BP controlled, continue lisinopril/HCTZ, amlodipine, metoprolol PULMONARY NODULES - seen on CT angio: 1. No evidence for pulmonary embolus. 2. There are 2 subpleural nodular densities within the right minor fissure within largest measuring 5 mm. - follow up CT chest according to guidelines DISPO d/c home ff up with PCP next week ff up with Receiving Weigher as scheduled Current Inpatient Medications: Current Inpatient Medications Medications (Trade) Dose Ordered Sig/Mo Route Start Time Stop Time Status Last Admin Dose Admin Ioversol (Optiray 320) 100 ml UD PRN IV 11/11/16 11:00 11/15/16 10:59 Acetaminophen (Tylenol Tab) 650 mg Q4H PRN PO 11/11/16 12:45 12/11/16 12:44 11/12/16 08:54 650 MG Ondansetron HCl (Zofran Inj) 4 mg Q6H PRN IV 11/11/16 12:45 12/11/16 12:44 Nitroglycerin (Nitrostat Tab) 0.4 mg UD PRN SL 11/11/16 12:45 12/11/16 12:44 11/11/16 15:46 0.4 MG Miscellaneous Information (Pharmacist Discharge Med Rec Consult) 1 ea UD PRN N/A 11/11/16 13:00 12/11/16 12:59 Amlodipine Besylate (Norvasc Tab) 5 mg DAILY PO 11/12/16 09:00 12/12/16 08:59 11/12/16 08:51 5 MG Aspirin (Ecotrin Tab) 81 mg DAILY PO 11/12/16 09:00 12/12/16 08:59 11/12/16 08:50 81 MG Atorvastatin Calcium (Lipitor Tab) 40 mg DAILY PO 11/12/16 09:00 12/12/16 08:59 11/12/16 08:51 40 MG Cholecalciferol (Vitamin D Tab) 400 inter.unit DAILY PO 11/12/16 09:00 12/12/16 08:59 11/12/16 08:51 400 INTER.UNIT HCTZ/Lisinopril (Prinzide 20-12.5MG Tab) 2 tab DAILY PO 11/12/16 09:00 12/12/16 08:59 11/12/16 08:51 2 TAB Metoprolol Succinate (Toprol Xl Tab) 25 mg DAILY PO 11/12/16 09:00 12/12/16 08:59 Cyclobenzaprine HCl (Flexeril Tab) 5 mg TID PRN PO 11/11/16 18:45 12/11/16 18:44 11/12/16 05:21 5 MG
[2016-11-12] MEDS ORDERED: FLX5 PO (11:18)
[2016-11-12] MEDS ORDERED: MCRK/10 PO (11:24)
--- NOTE | 2016-11-12 11:27 | Discharge Instructions ---
Discharge Instructions Date of Service Nov 12, 2016. Admission Reason for Admission: Facial Numbness, Headache Discharge Discharge Diagnosis / Problem: Pain on the right side of the head Discharge Goals Goal(s): Diagnostic testing, Therapeutic intervention Activity Recommendations Activity Limitations: as noted below (resume activity gradually as tolerated) Lifting Limitations: until after follow-up appointment Exercise/Sports Limitations: until after follow-up appointment Driving or Machine Use: do not drive or use heavy machinery while taking Flexeril . Instructions / Follow-Up Instructions / Follow-Up PLEASE REVIEW YOUR NEW MEDICATION LIST AND FOLLOW INSTRUCTIONS CAREFULLY. CALL PRIMARY CARE PHYSICIAN OR RETURN TO ER IMMEDIATELY IF WITH RECURRENCE OF SYMPTOMS. FOLLOW UP WITH YOUR PRIMARY CARE PHYSICIAN IN 1 WEEK. FOLLOW UP WITH YOUR CHILDREN'S MINISTER SCHEDULED. Current Hospital Diet Patient's current hospital diet: AHA Diet (Heart Healthy) Discharge Diet Recommended Diet: AHA Diet (Heart Healthy) Pending Studies Studies pending at discharge: no Laboratory Results Hemoglobin A1c Test 11/11/16 09:35 Range/Units Estimated Average Glucose 114 mg/dl Hemoglobin A1c 5.6 4.5-5.6 % Lipid Panel Test 11/12/16 05:21 Range/Units Triglycerides Level 112 0-150 mg/dl Cholesterol Level 131 0-200 mg/dl HDL Cholesterol 49 mg/dl Cholesterol/HDL Ratio 2.7 LDL Cholesterol, Calculated 60 mg/dl Medical Emergencies . Who to Call and When: Medical Emergencies: If at any time you feel your situation is an emergency, please call 911 immediately. . Non-Emergent Contact Non-Emergency issues call your: Primary Care Provider Call Non-Emergent contact if: you have a fever, your pain is not controlled, your pain is worsening, you have any medication questions . . "Provider Documentation" section prepared by Yonathan Bustillos. . VTE Core Measure Inpt VTE Proph given/why not?: SCD's
--- NOTE | 2016-11-12 11:29 | NEUROLOGY CONSULTATION ---
DATE OF CONSULTATION: 11/12/2016 DATE OF CONSULTATION: 11/12/2016. HISTORY OF PRESENT ILLNESS: I am seeing Mr. Reynolds in followup of headache which was relatively precipitous. He was somewhat inconsistent historian. He indicates he still had some pain on the right side of the face which has been persistent, not electrical. He has not had any new neurologic symptoms. He continues to say that the right face is somewhat numb. There has not been any precipitous headaches. His sed rate was 4. PHYSICAL EXAMINATION: GENERAL: He is awake, alert, normal speech and language, affect appropriate. No temporal tenderness. Normal extraocular motility, facial symmetry and facial sensation. No weakness. There is no drift of the upper and strength in the lower is full. IMPRESSION: Right hemicranial headache of fairly sudden onset, negative imaging, nothing that explains persistent facial numbness. No meningeal signs. We have spoken about doing a lumbar puncture because of the precipitous nature of the headache. The patient declines. I would recommend simply putting him on some low dose gabapentin, maybe 100 b.i.d. and see if that is helpful. From a neurologic perspective, I think he can be discharged and see me in followup in 2-3 weeks. CLAY
--- NOTE | 2016-11-12 11:37 | Discharge Summary ---
Discharge Summary Date of Service Nov 12, 2016. Discharge Summary Admission Date: Nov 11, 2016 at 12:44 Discharge Date: Nov 12, 2016 Discharge Disposition: Home Principal Diagnosis: EPISODE OF PAIN AT THE RIGHT TEMPORO-FRONTAL REGION Secondary Diagnoses/Problems: Please refer to hospital course below. Procedures: CHEST CTA for PULMONARY ARTERIES CT DOSE: 555.84 mGy.cm HISTORY: Atypical chest pain. TECHNIQUE: Multiaxial CT images of the chest were performed following the intravenous administration of contrast to evaluate the pulmonary arteries. Maximal intensity projection images were also obtained. COMPARISON STUDY: None. FINDINGS: Normal caliber thoracic aorta with no evidence for dissection. The distal descending thoracic aorta is not well opacified which results in nondiagnostic evaluation for a dissection. Mild calcified plaque within the aorta. No pleural or pericardial effusions. Small hiatus hernia. The unenhanced liver, spleen, and adrenal glands are unremarkable. Colonic diverticulosis. Poststernotomy changes. No mediastinal or hilar lymphadenopathy. No filling defects within the pulmonary arteries to suggest pulmonary embolus. No pneumothorax. The central airways are patent. There are 2 subpleural nodular densities along the right minor fissure with the largest measuring 5 mm. IMPRESSION: 1. No evidence for pulmonary embolus. 2. There are 2 subpleural nodular densities within the right minor fissure within largest measuring 5 mm. Please refer to the chart below for recommended follow-up. Please refer to below summary of Fleischner criteria recommendations for follow-up of incidental CT nodules (Palmira Talley, Guidelines for management of small pulmonary nodules detected on CT scans: A statement from the Fleischner Society, Radiology 237: [phone].) SOLID NODULES Solitary nodule size: <6 mm * Low risk patients: no follow-up needed * high risk patients: optional CT at 12 months Solitary nodule size: 6-8 mm * Low risk patients: follow-up at 6-12 months, then consider further follow-up at 18-24 months * high risk patients: initial follow-up CT at 6-12 months and then at 18-24 months if no change Solitary nodule size: >8 mm * either low or high risk patients - consider follow-up CT at 3 months, and/or CT-PET, and/or biopsy Multiple nodules size: <6 mm * Low risk patients: no routine follow-up * high risk patients: optional CT at 12 months Multiple nodules size: 6-8 mm * Low risk patients: follow-up at 3-6 months, then consider further follow-up at 18-24 months * high risk patients: follow-up at 3-6 months, then at 18-24 months if no change Multiple nodules size: >8 mm * Low risk patients: follow-up at 3-6 months, then consider further follow-up at 18-24 months * high risk patients: follow-up at 3-6 months, then at 18-24 months if no change Note: newly detected indeterminate nodule in persons 35 years of age or older. * Low risk patients: minimal or absent history of smoking and/or other known risk factors * high risk patients: history of smoking or of other known risk factors (e.g. first degree relative with lung cancer, or exposure to asbestos, radon, uranium) * if a nodule up to 8 mm is partly solid or is ground glass further follow-up is required after 24 months to exclude possible slow growing adenocarcinoma (FRANCINE) SUBSOLID NODULES Solitary pure ground-glass nodule * nodule size <6 mm - no CT follow-up required * nodule size >=6 mm - follow-up CT at 6-12 months, then every 2 years until 5 years Solitary part-solid nodule * nodule size <6 mm - no CT follow-up required * nodule size >=6 mm - follow-up CT at 3-6 months. If unchanged, and solid component remains <6 mm, then annual follow-up for 5 years Multiple subsolid nodules * nodule size <6 mm - follow-up CT at 3-6 months, consider further follow-up at 2 and 4 years if stable * nodule size >=6 mm - follow-up CT at 3-6 months, subsequent management based on the most suspicious nodule(s) MRI OF THE BRAIN WITHOUT CONTRAST CLINICAL HISTORY: Stroke RIGHT FACIAL PAIN AND NUMBNESS. COMPARISON STUDY: Noncontrast head CT dated 11/11/2016 FINDINGS: Sagittal T1, axial diffusion, proton density and T2 weighted axial, coronal FLAIR, and axial T1-weighted images were acquired. No intra or extra-axial mass lesions are visualized Axial diffusion-weighted images reveal no evidence of acute or subacute infarction. There is no evidence of ventricular dilatation. Proton density T2-weighted and FLAIR images reveal no significant intraparenchymal signal abnormalities. There are no abnormal flow voids. There is minor dependent mucosal thickening/fluid within the left maxillary sinus. IMPRESSION: Normal noncontrast MRI of the brain for age. MR ANGIOGRAM OF THE BRAIN CLINICAL HISTORY: Strokelike symptoms. COMPARISON STUDY: MRI of the brain performed concurrently on 11/11/2016. TECHNIQUE: 3-D [id number] MR angiography of the intracranial circulation is performed. 3-D tumble views are created and assessed. IV contrast was not administered for this examination. FINDINGS: The internal carotid arteries are widely patent bilaterally, as are the anterior and middle cerebral arteries. The vertebrobasilar system and posterior cerebral arteries are widely patent. The left vertebral artery is dominant and the right vertebral artery is diminutive. There is no aneurysm, high-grade stenosis, or focal vessel cutoff seen throughout the intracranial circulation. The brain parenchyma is normal as visualized. IMPRESSION: Unremarkable MR angiogram of the brain. NECK MRA HISTORY: CVA TECHNIQUE: [id number] MRA of the neck was performed without intravenous contrast. All measurements were calculated based on NASCET criteria. COMPARISON STUDY: None. FINDINGS: The aortic arch and proximal great vessels are widely patent. There is no significant stenosis, occlusion, or dissection identified within the bilateral common carotid, internal carotid, or left vertebral arteries. The right vertebral artery is severely hypoplastic and not well visualized. Mild atherosclerotic plaque within the bilateral carotid bulbs. IMPRESSION: No significant stenosis, occlusion, or dissection identified within the carotid or left vertebral arteries. The right vertebral artery is severely hypoplastic and not well visualized. BILATERAL LOWER EXTREMITY VENOUS DOPPLER HISTORY: Pain. Edema. edema COMPARISON STUDY: None. FINDINGS: There is normal compressibility, flow, and augmentation within the bilateral lower extremity deep venous systems. IMPRESSION: No DVT within the right or left lower extremity. ECHO: * -- Conclusions -- * There is mild concentric left ventricular hypertrophy. * The left ventricular wall motion is normal. * Ejection Fraction = 60-65%. * Trace aortic regurgitation. * There is trace mitral regurgitation. * Doppler findings do not suggest pulmonary hypertension. * There is mild dilatation of the aortic root and the proximal ascending aorta with measurements of 3.9 cm and 4.1 cm respectively. Consultations: Neurologist Dr. Clarke, Pnp Dr. Krishnamurthy Pending Studies/Follow-Up: Repeat potassium level on follow up (re: potassium supplement ordered); Follow up lung nodules according to guidelines; Please refer to hospital course below for further details. 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 Patient reports he was at work last night and he had a sudden on set of right sided headache that radiated into the right side of his face and jaw. Patient reports associated right facial numbness. He reports the pain has eased up since yesterday however has not completely resolved. No blurred or double vision. He denies associated slurred speech, facial droop, or difficulty swallowing. He denies any unilateral limb numbness or tingling. He reports chronic chest pain that has been present for the past several years. He reports the pain stays at the same intensity. He describes the pain as being located on the left side of his chest and describes it as a muscle ache. He reports shortness of breath while trying to sleep at night that has been present for the past 6 months. He notes edema to his LLE for the past couple of weeks. He denies lightheadedness, dizziness, diaphoresis, or syncopal events. He denies abdominal pain, nausea, vomiting, or diarrhea. No fever or chills. He denies urinary symptoms. In the ER, head CT is negative, CTA chest is negative for PE, EKG does not show any acute ST changes, and initial troponin is negative. Patient was given morphine and Zofran. Physical Exam (per Admitting): General Appearance: no apparent distress Head: normocephalic Eyes: normal inspection ENT: hearing grossly normal Neck: supple, no JVD Respiratory/Chest: lungs clear, normal breath sounds, no respiratory distress Cardiovascular: regular rate, rhythm, no edema, normal peripheral pulses Abdomen/GI: normal bowel sounds, non tender, soft Extremities/Musculoskelatal: normal inspection, no calf tenderness Neurologic/Psych: alert, oriented x 3, + pertinent finding (patient reports decreased sensation to right side of face, no other focal deficits noted) Skin: normal color, warm/dry Hospital Course EPISODE OF PAIN ON THE RIGHT TEMPORO-FRONTAL REGION - patient presenting sudden onset of pain- around 1 second- right sided with radiation into the right side of his face with associated right facial numbness , no other focal deficits noted - brain MRI/MRA, neck MRA: no acute process - evaluated by Neurologist Dr. Clarke possible ice-pick headache, migraine no other intervention at this time - symptoms resolved follow up as outpatient CHEST PAIN, HX CAD - chest pain seems to be a chronic issue that has been going on for several years - hx of CABG x 3 in 2009, thallium scan in 2014 that was abnormal however medical management recommended - cardiac markers negative EKG without acute ST changes , (+) ectopic atrial beats Echo: * -- Conclusions -- * There is mild concentric left ventricular hypertrophy. * The left ventricular wall motion is normal. * Ejection Fraction = 60-65%. * Trace aortic regurgitation. * There is trace mitral regurgitation. * Doppler findings do not suggest pulmonary hypertension. * There is mild dilatation of the aortic root and the proximal ascending aorta with measurements of 3.9 cm and 4.1 cm respectively. CTA negative for PE - evaluated by Cardiology no other testing at this time - continue ASA, beta rufino, and statin add potassium 10meq po daily to address ectopic atrial beats - monitor mild aortic root and proximal ascending aorta dilatation noted on echo RIGHT SIDED NECK PAIN - likely muscular strain - improved with Flexeril - advised Flexeril PRN, warm compress, neck exercises, no lifting HTN - BP controlled, continue lisinopril/HCTZ, amlodipine, metoprolol PULMONARY NODULES - seen on CT angio: 1. No evidence for pulmonary embolus. 2. There are 2 subpleural nodular densities within the right minor fissure within largest measuring 5 mm. - follow up CT chest according to guidelines DISPO d/c home ff up with PCP next week ff up with Pnp as scheduled Total time spent on discharge = 35 minutes This includes examination of the patient, discharge planning, medication reconciliation, and communication with other providers. Discharge Instructions Discharge Instructions Date of Service Nov 12, 2016. Admission Reason for Admission: Facial Numbness, Headache Discharge Discharge Diagnosis / Problem: Pain on the right side of the head Discharge Goals Goal(s): Diagnostic testing, Therapeutic intervention Activity Recommendations Activity Limitations: as noted below (resume activity gradually as tolerated) Lifting Limitations: until after follow-up appointment Exercise/Sports Limitations: until after follow-up appointment Driving or Machine Use: do not drive or use heavy machinery while taking Flexeril . Instructions / Follow-Up Instructions / Follow-Up PLEASE REVIEW YOUR NEW MEDICATION LIST AND FOLLOW INSTRUCTIONS CAREFULLY. CALL PRIMARY CARE PHYSICIAN OR RETURN TO ER IMMEDIATELY IF WITH RECURRENCE OF SYMPTOMS. FOLLOW UP WITH YOUR PRIMARY CARE PHYSICIAN IN 1 WEEK. FOLLOW UP WITH YOUR PROFESSOR OF ANTHROPOLOGY SCHEDULED. Current Hospital Diet Patient's current hospital diet: AHA Diet (Heart Healthy) Discharge Diet Recommended Diet: AHA Diet (Heart Healthy) Pending Studies Studies pending at discharge: no Laboratory Results Hemoglobin A1c Test 11/11/16 09:35 Range/Units Estimated Average Glucose 114 mg/dl Hemoglobin A1c 5.6 4.5-5.6 % Lipid Panel Test 11/12/16 05:21 Range/Units Triglycerides Level 112 0-150 mg/dl Cholesterol Level 131 0-200 mg/dl HDL Cholesterol 49 mg/dl Cholesterol/HDL Ratio 2.7 LDL Cholesterol, Calculated 60 mg/dl Medical Emergencies . Who to Call and When: Medical Emergencies: If at any time you feel your situation is an emergency, please call 911 immediately. . Non-Emergent Contact Non-Emergency issues call your: Primary Care Provider Call Non-Emergent contact if: you have a fever, your pain is not controlled, your pain is worsening, you have any medication questions . . "Provider Documentation" section prepared by Yonathan Bustillos. . VTE Core Measure Inpt VTE Proph given/why not?: SCD's
[2016-11-12 11:55] VITALS: BP 142/77; PULSE 61; TEMP 36.5; O2SAT 95
--- NOTE | 2016-11-12 14:26 | ECHOCARDIOGRAM REPORT ---
*NOTICE TO RECEIVING [employer] This information is strictly Confidential and protected under [place] law. [place] law prohibits you from making any further disclosure of this information unless further disclosure is expressly permitted by the written consent of the person to whom it pertains or is authorized by law. A general authorization for the release of medical or other information is not sufficient for this purpose. Hospital accepts no responsibility if the information is made available to any other person, INCLUDING THE PATIENT. Interpretation Summary * Name: SOM TAI I Study Date: 11/12/2016 09:47 AM BP: 134/77 mmHg * Patient Location: C.2T\S\S229\S\2 HR: 63 * : 1940 (M/d/yyyy) Gender: Male Height: 70 in * Age: 76 yrs Ethnicity: CA Weight: 217 lb * Ordering Physician: Gabriela Porter * Referring Physician: Self, Referred * Performed By: Shruthi Wells RCS * * Reason For Study: CVA * BSA: 2.2 m2 * The study was technically adequate. * -- Conclusions -- * There is mild concentric left ventricular hypertrophy. * The left ventricular wall motion is normal. * Ejection Fraction = 60-65%. * Trace aortic regurgitation. * There is trace mitral regurgitation. * Doppler findings do not suggest pulmonary hypertension. * There is mild dilatation of the aortic root and the proximal ascending aorta with measurements of 3.9 cm and 4.1 cm respectively. Procedure Details * A complete two-dimensional transthoracic echocardiogram was performed (2D, M-mode, Doppler and color flow Doppler). * A saline contrast injection was performed to assess for cardiac shunting. * The injection was performed through an intravenous line in the right arm. * The attending nurse who injected the saline contrast was GITA RODRIGUEZ, RN. * A total of 10 cc of agitated saline was given. Left Ventricle * The left ventricle is normal in size. * There is mild concentric left ventricular hypertrophy. * Left ventricular systolic function is normal. * Ejection Fraction = 60-65%. * The left ventricular wall motion is normal. Right Ventricle * The right ventricle is normal size. * The right ventricular systolic function is normal as assessed by tricuspid annular plane systolic excursion (TAPSE) (normal >1.5 cm). Atria * The left atrial size is normal. * Right atrial size is normal. * There is no evidence of atrial septal defect, but resolution does not allow assessment for a patent foramen ovale. Mitral Valve * The mitral valve is normal. * There is no mitral valve stenosis. * There is trace mitral regurgitation. Tricuspid Valve * The tricuspid valve is normal. * There is no tricuspid stenosis. * Significant tricuspid regurgitation is absent. * Doppler findings do not suggest pulmonary hypertension. Aortic Valve * The aortic valve is trileaflet. * Aortic stenosis is absent. * Trace aortic regurgitation. Pulmonic Valve * The pulmonary valve is not well seen, but the Doppler examination is normal without significant regurgitation or stenosis. Great Vessels * There is mild dilatation of the aortic root and the proximal ascending aorta with measurements of 3.9 cm and 4.1 cm respectively. Pericardium/Pleural * There is no pericardial effusion. Great Vessels * Normal inferior vena cava diameter and respiratory variation suggests normal central venous pressure. Left Ventricular Diastolic Function * Grade I diastolic dysfunction, (abnormal relaxation pattern). MMode 2D Measurements and Calculations IVSd 1.5 cm IVSs 1.6 cm LVIDd 4.8 cm LVIDs 3.9 cm LVPWd 1.5 cm LVPWs 1.5 cm IVS/LVPW 1.0 FS 17.9 % EDV(Teich) 106.7 ml ESV(Teich) 67.1 ml EF(Teich) 37.1 % EDV(cubed) 109.6 ml ESV(cubed) 60.7 ml EF(cubed) 44.6 % % IVS thick 5.9 % % LVPW thick 1.5 % LV mass(C)d 304.6 grams LV mass(C)dI 141.0 grams/m\S\2 LV mass(C)s 243.0 grams LV mass(C)sI 112.4 grams/m\S\2 SV(Teich) 39.6 ml SI(Teich) 18.3 ml/m\S\2 SV(cubed) 48.8 ml SI(cubed) 22.6 ml/m\S\2 Ao root diam 3.9 cm Ao root area 12.1 cm\S\2 ACS 2.5 cm LA dimension 5.1 cm asc Aorta Diam 4.1 cm LA/Ao 1.3 LVOT diam 2.0 cm LVOT area 3.2 cm\S\2 LVAd ap4 38.5 cm\S\2 LVLd ap4 8.6 cm EDV(MOD-sp4) 141.1 ml EDV(sp4-el) 146.5 ml LVAs ap4 29.2 cm\S\2 LVLs ap4 8.0 cm ESV(MOD-sp4) 90.5 ml ESV(sp4-el) 90.7 ml EF(MOD-sp4) 35.9 % EF(sp4-el) 38.1 % LVAd ap2 39.3 cm\S\2 LVLd ap2 8.9 cm EDV(MOD-sp2) 140.1 ml EDV(sp2-el) 146.8 ml LVAs ap2 29.3 cm\S\2 LVLs ap2 8.1 cm ESV(MOD-sp2) 86.9 ml ESV(sp2-el) 90.4 ml EF(MOD-sp2) 38.0 % EF(sp2-el) 38.4 % LVLd %diff 3.8 % EDV(MOD-bp) 141.6 ml LVLs %diff 1.0 % ESV(MOD-bp) 89.0 ml EF(MOD-bp) 37.1 % SV(MOD-sp4) 50.6 ml SI(MOD-sp4) 23.4 ml/m\S\2 SV(MOD-sp2) 53.2 ml SI(MOD-sp2) 24.6 ml/m\S\2 SV(MOD-bp) 52.6 ml SI(MOD-bp) 24.3 ml/m\S\2 SV(sp4-el) 55.9 ml SI(sp4-el) 25.8 ml/m\S\2 SV(sp2-el) 56.4 ml SI(sp2-el) 26.1 ml/m\S\2 Doppler Measurements and Calculations MV E max lauro 78.7 cm/sec MV A max lauro 79.8 cm/sec MV E/A 0.99 MV P1/2t max lauro 91.8 cm/sec MV P1/2t 62.4 msec MVA(P1/2t) 3.5 cm\S\2 MV dec slope 431.1 cm/sec\S\2 MV dec time 0.25 sec Ao V2 max 104.8 cm/sec Ao max PG 4.4 mmHg Ao max PG (full) 1.8 mmHg KAMARI(V,A) 2.5 cm\S\2 KAMARI(V,D) 2.5 cm\S\2 LV V1 max PG 2.6 mmHg LV V1 max 80.6 cm/sec PA V2 max 139.5 cm/sec PA max PG 7.8 mmHg PI max lauro 187.2 cm/sec PI max PG 14.0 mmHg PI dec slope 171.0 cm/sec\S\2 PI P1/2t 320.6 msec
[2016-11-13] MEDS ORDERED: POTASSIUM CHLORIDE 10 MEQ TABCR PO SCH (09:00)
== END 2016-11-12 12:05 | disposition home or self-care (01) | DRG 103 ==
LOC: C.EDB 09:20 → C.2T 12:44 → ENRESERV 13:45
PROVIDERS: ADMIT Internal Medicine; ATTEND Internal Medicine
DX: G43.909 Migraine, unspecified, not intractable, without status migrainosus (principal); R20.0 Anesthesia of skin; M54.2 Cervicalgia; S16.1XXA Strain of muscle, fascia and tendon at neck level, initial encounter; X58.XXXA Exposure to other specified factors, initial encounter; R91.8 Other nonspecific abnormal finding of lung field; R07.89 Other chest pain; G89.29 Other chronic pain; I25.118 Atherosclerotic heart disease of native coronary artery with other forms of angina pectoris; I10 Essential (primary) hypertension; E78.5 Hyperlipidemia, unspecified; Z87.891 Personal history of nicotine dependence; Z95.1 Presence of aortocoronary bypass graft; Z87.898 Personal history of other specified conditions; Z79.82 Long term (current) use of aspirin; Z79.899 Other long term (current) drug therapy

== ENCOUNTER 2021-08-05 10:09 | Inpatient (IN) ==
[2021-08-05] MEDS ORDERED: SODIUM CHLORIDE 0.9% 1000ML 1,000 ML IV ONE (10:51)
--- NOTE | 2021-08-05 10:53 | Emergency Department Note ---
Impression & Plan Chest pain ADMIT ED Provider Note HPI: The patient is a 81-year-old male with history of coronary artery disease status post CABG, presents the emergency department with 3 days of left-sided chest discomfort that radiates to his back. Patient states the pain is been re latively low-grade but it has been constant, states that he mentioned the symptoms to his doctor yesterday who advised that he go to the emergency department. Patient states he waited until this morning to come in. On arrival the patient is hemodynamically stable, mildly hypertensive at 150/77 but saturating well on room air and comfortable appearing, he does have some low- grade chest pain but otherwise is in no acute distress on my initial assessment. ROS: -Cardio: Chest discomfort radiating to back *10 point review systems was conducted and is otherwise negative unless stated above *Outpatient medications and allergy history reviewed PE: General: Alert, NAD HEENT: Normocephalic, atraumatic Eyes: Extraocular eye movement is intact, no scleral erythema Pulmonary: Clear to auscultation bilaterally, no wheezing Cardio: Regular rate and rhythm GI: Abdomen is soft, nontender : No suprapubic tenderness MSK: No evidence of trauma or malformation of the extremities, no edema Skin: No evidence of rash Neuro: Alert, no focal deficits Psychiatric: Cooperative monitor technician: - An order was placed for continuous cardiac monitoring - Patient was noted to be in sinus rhythm with rate of 55 EKG: Rate: 56 Rhythm: Sinus bradycardia Intervals: [place] interval prolonged at 240 ms, otherwise within normal limits ST changes: No ST elevation Time: 1025 Medical Decision Making: The patient is a 81-year-old gentleman with history of coronary artery disease, presents the emergency department with a chief complaint of chest discomfort for 4 days. Patient states that it does radiate somewhat to his back. On arrival here to the ED he is complaining of mild pain. He is in no acute distress. CT angiography of the chest was obtained that does not show any evidence of aortic pathology or pulmonary embolism. Troponin is slightly elevated at 0.05, patient was given aspirin in the ED. Will hold on heparin drip given that the patient is currently chest pain-free. On my reassessment he tells me that his chest pain is now gone. I do have concern that he has had some typical symptoms recently including worsening of his pain with ambulation and going up stairs. He has a history of significant coronary artery disease and I do feel that he should be admitted for further care. I discussed this with the patient he is in agreement to the above plan. Case [facility] and the patient was admitted in stable condition for further management. Diagnosis: 1. Elevated troponin 2. Typical Chest Pain with history of coronary artery disease Disposition: ADMIT Antony Wen DO Emergency Medicine Past Med/Surg History Medical History (Updated 08/05/21 @ 14:20 by Antony Wen DO) Bilateral carotid artery stenosis CAD (coronary artery disease) "2009 - CABG x 3 2015 - abnormal thallium scan suggestive of ischemia however medical management was suggested" Cyst, kidney, acquired Dyslipidemia HTN (hypertension) Knee osteoarthritis Nephrolithiasis Surgical History (Updated 08/05/21 @ 12:57 by Trina Larsen PA-C) History of cardiac cath History of incisional hernia repair S/P CABG x 3 Family History (Updated 08/05/21 @ 12:59 by Trina Larsen PA-C) Mother Hypertension Heart disease Father Hypertension Stroke Brother Hypertension Heart disease Sister Cancer Social History (Updated 08/05/21 @ 12:59 by Trina Larsen PA-C) Smoking Status: Former smoker Smoking End Date: 1972; Hx Substance Use: No Preferred Language: Ivorian marital status: current occupational status: employed Feels Safe at Home: Yes Allergies Allergies Allergy/AdvReac Type Severity Reaction Status Date / Time No Known Allergies Allergy Unverified 08/05/21 13:17 Home Meds Home Medications Medication Instructions Recorded Confirmed aspirin 81 mg tablet,delayed 81 mg PO DAILY 08/05/21 08/05/21 release atorvastatin 40 mg tablet 40 mg PO DAILY 08/05/21 08/05/21 cholecalciferol (vitamin D3) 25 0 mcg PO DAILY 08/05/21 08/05/21 mcg (1,000 unit) tablet (Vitamin D3) cyanocobalamin (vitamin B-12) 50 0 mcg PO DAILY 08/05/21 08/05/21 mcg tablet (Vitamin B-12) lisinopril 20 2 tab PO QAM 08/05/21 08/05/21 mg-hydrochlorothiazide 12.5 mg tablet metoprolol succinate 25 mg 25 mg PO DAILY 08/05/21 08/05/21 tablet,extended release 24 hr nitroglycerin 0.4 mg sublingual 0 mg SUBLINGUAL UD PRN 08/05/21 08/05/21 tablet (Nitrostat) potassium 99 mg tablet 99 mg PO DAILY 08/05/21 08/05/21 Results & Data (ED) Vital Signs Vital Signs - 24 hr 08/05/21 10:17 08/05/21 10:30 08/05/21 10:45 Temperature 36.4 C L Temperature Source Temporal Artery Scan Pulse Rate 60 59 L Pulse Rate [Apical] Pulse Rate from SpO2 Sensor 59 L Pulse Rhythm [Apical] Pulse Strength [Apical] Respiratory Rate 18 24 Respiratory Effort / Characteristics Respiratory Depth Blood Pressure 150/77 H 149/75 H Blood Pressure [Left Arm] Blood Pressure Mean 101 99 Blood Pressure Mean [Left Arm] Blood Pressure Position [Left Arm] Pulse Oximetry 95 96 95 Oxygen Delivery Method Room Air Room Air Sepsis Recent Fever Within 48 Hours No Sepsis New/Unexplained Change in Mental Status No Sepsis Action Taken by Nursing No Action Required 08/05/21 11:00 08/05/21 12:00 08/05/21 12:35 Temperature Temperature Source Pulse Rate 57 L 50 L Pulse Rate [Apical] 57 L Pulse Rate from SpO2 Sensor 57 L 54 L Pulse Rhythm [Apical] Pulse Strength [Apical] Respiratory Rate 18 16 24 Respiratory Effort / Characteristics Respiratory Depth Blood Pressure 140/79 146/81 H Blood Pressure [Left Arm] 169/84 H Blood Pressure Mean 99 102 Blood Pressure Mean [Left Arm] 112 Blood Pressure Position [Left Arm] Pulse Oximetry 95 97 94 Oxygen Delivery Method Room Air Sepsis Recent Fever Within 48 Hours Sepsis New/Unexplained Change in Mental Status Sepsis Action Taken by Nursing 08/05/21 13:20 Temperature Temperature Source Pulse Rate Pulse Rate [Apical] 54 L Pulse Rate from SpO2 Sensor Pulse Rhythm [Apical] Regular Pulse Strength [Apical] Normal Respiratory Rate 16 Respiratory Effort / Characteristics Non-Labored Respiratory Depth Normal Blood Pressure Blood Pressure [Left Arm] 148/82 H Blood Pressure Mean Blood Pressure Mean [Left Arm] 104 Blood Pressure Position [Left Arm] Sitting Pulse Oximetry 97 Oxygen Delivery Method Room Air Sepsis Recent Fever Within 48 Hours Sepsis New/Unexplained Change in Mental Status Sepsis Action Taken by Nursing Laboratory Data Result diagrams: 08/05/21 10:31 08/05/21 10:31 Lab Results 08/05/21 08/05/21 08/05/21 Range/Units 10:31 10:31 10:31 WBC 6.60 (4.8-10.8) K/uL RBC 4.49 L (4.7-6.1) M/uL Hgb 14.7 (14.0-18.0) g/dL Hct 41.7 L (42-52) % MCV 92.9 (80-100) fL MCH 32.7 (25-34) pg MCHC 35.3 (32-36) g/dL RDW Std Deviation 45.1 (36.4-46.3) fL RDW Coeff of Susan 13.2 (11.5-14.5) % Plt Count 235 (130-400) K/uL MPV 8.9 (7.4-10.4) fL Immature Gran % (Auto) 0.2 % Neut % (Auto) 64.4 % Lymph % (Auto) 23.2 % [place] % (Auto) 10.0 % Eos % (Auto) 1.7 % Baso % (Auto) 0.5 % Neut # (Auto) 4.26 (1.4-6.5) K/uL Lymph # (Auto) 1.53 (1.2-3.4) K/uL [place] # (Auto) 0.66 H (0.11-0.59) K/uL Eos # (Auto) 0.11 (0-0.5) K/uL Baso # (Auto) 0.03 (0-0.2) K/uL Immature Gran # (Auto) 0.01 (0.00-0.02) K/uL PT 11.1 (9.0-12.0) Seconds INR 1.0 (0.9-1.1) APTT 25.8 (21.0-31.0) Seconds PTT Ratio 0.9 Sodium 138 (136-145) mmol/L Potassium 4.1 (3.5-5.1) mmol/L Chloride 104 (98-107) mmol/L Carbon Dioxide 27 (21-32) mmol/L Anion Gap 7 (3-11) BUN 19 (6-23) mg/dl Creatinine 1.01 (0.6-1.4) mg/dl Est Cr Clr Drug Dosing 66.0 ml/min Est GFR ( Amer) 81.6 ml/min Est GFR (Non-Af Amer) 70.4 ml/min BUN/Creatinine Ratio 18.8 (10-20) Glucose 133 H (70-99(Fasting)) mg/dl Calcium 9.7 (8.5-10.1) mg/dl Total Bilirubin 1.1 H (0.2-1.0) mg/dl AST 21 (13-39) U/L ALT 28 (7-52) U/L Alkaline Phosphatase 56 (34-104) U/L Troponin I 0.05 H* (0-0.04) ng/ml Total Protein 7.1 (6.0-8.3) gm/dl Albumin 4.2 (3.4-5.0) gm/dl Globulin 2.9 (2.5-4.0) gm/dl Albumin/Globulin Ratio 1.4 (0.9-2) Lipase 23 (11-82) U/L SARS-CoV-2, RNA, NAAT (NEGATIVE) 08/05/21 Range/Units 12:48 WBC (4.8-10.8) K/uL RBC (4.7-6.1) M/uL Hgb (14.0-18.0) g/dL Hct (42-52) % MCV (80-100) fL MCH (25-34) pg MCHC (32-36) g/dL RDW Std Deviation (36.4-46.3) fL RDW Coeff of Susan (11.5-14.5) % Plt Count (130-400) K/uL MPV (7.4-10.4) fL Immature Gran % (Auto) % Neut % (Auto) % Lymph % (Auto) % [place] % (Auto) % Eos % (Auto) % Baso % (Auto) % Neut # (Auto) (1.4-6.5) K/uL Lymph # (Auto) (1.2-3.4) K/uL [place] # (Auto) (0.11-0.59) K/uL Eos # (Auto) (0-0.5) K/uL Baso # (Auto) (0-0.2) K/uL Immature Gran # (Auto) (0.00-0.02) K/uL PT (9.0-12.0) Seconds INR (0.9-1.1) APTT (21.0-31.0) Seconds PTT Ratio Sodium (136-145) mmol/L Potassium (3.5-5.1) mmol/L Chloride (98-107) mmol/L Carbon Dioxide (21-32) mmol/L Anion Gap (3-11) BUN (6-23) mg/dl Creatinine (0.6-1.4) mg/dl Est Cr Clr Drug Dosing ml/min Est GFR ( Amer) ml/min Est GFR (Non-Af Amer) ml/min BUN/Creatinine Ratio (10-20) Glucose (70-99(Fasting)) mg/dl Calcium (8.5-10.1) mg/dl Total Bilirubin (0.2-1.0) mg/dl AST (13-39) U/L ALT (7-52) U/L Alkaline Phosphatase (34-104) U/L Troponin I (0-0.04) ng/ml Total Protein (6.0-8.3) gm/dl Albumin (3.4-5.0) gm/dl Globulin (2.5-4.0) gm/dl Albumin/Globulin Ratio (0.9-2) Lipase (11-82) U/L SARS-CoV-2, RNA, NAAT NEGATIVE (NEGATIVE) Administered Medications Discontinued Medications Aspirin (Aspirin Chew 324 Mg) 324 mg PO NOW STA Stop: 08/05/21 12:41 Last Admin: 08/05/21 12:44 Dose: 324 mg Documented by: [id number] Sodium Chloride (Nss 1000ml) 1,000 mls @ 999 mls/hr IV .Q1H1M ONE Stop: 08/05/21 11:51 Last Infusion: 08/05/21 12:36 Dose: 0 mls/hr Documented by: [id number] Admin: 08/05/21 11:40 Dose: 999 mls/hr Documented by: [id number] Ioversol (Optiray 320 125ml) 119 ml IV ONCE ONE Stop: 08/05/21 11:34 Last Admin: 08/05/21 11:33 Dose: 119 ml Documented by: [id number] Imaging Data Radiologist's Impression: Chest X-Ray 08/05/21 10:45 SINGLE VIEW CHEST CLINICAL HISTORY: Atypical chest pain. FINDINGS: An AP, portable, upright chest radiograph is correlated with chest CT dated 11/11/2016. The examination is degraded by portable technique and apical lordotic positioning. The patient is status post midline sternotomy. The heart is enlarged noting atherosclerotic calcification of the thoracic aorta. Chronic interstitial thickening is similar to previous. There is bibasilar scarring/atelectasis. No airspace consolidation or large pleural effusion is identified. No pneumothorax is seen. The skeletal structures are osteopenic. The bony thorax is grossly intact. IMPRESSION: Cardiomegaly with no acute cardiopulmonary abnormality. ACT 112: Negative or not required by law. Electronically signed by: Isaac Chinchilla M.D. 08/05/2021 11:14 AM Chest CTA 08/05/21 10:50 CT ANGIOGRAM OF THE CHEST CLINICAL HISTORY: Cough and dyspnea. COMPARISON STUDY: Chest CT dated 11/11/2016. Chest x-ray dated 08/05/2021. TECHNIQUE: Following the IV administration of 119 cc of Optiray 320, CT angiogram of the chest was performed from the upper abdomen to the thoracic inlet utilizing the pulmonary embolus protocol. Images are reviewed in the axial, sagittal, and coronal planes. 3-D MIPS images are created and assessed. IV contrast was administered without complication. A dose lowering technique was utilized adhering to the principles of ALARA. CT DOSE: 673.01 mGy.cm FINDINGS: Thyroid: Imaged portions of the thyroid gland are normal in size and attenuation. Thoracic aorta: There is atherosclerotic calcification of the thoracic aorta, which is normal in caliber and demonstrates standard 3-vessel arch anatomy. No dissection is seen. Pulmonary vasculature: The main pulmonary arteries are dilated suggesting pulmonary artery hypertension. There are no filling defects identified in main, lobar, or segmental pulmonary branches to suggest pulmonary embolus. Heart: The patient is status post midline sternotomy. The heart is enlarged and without pericardial effusion. The coronary arteries are densely calcified. Lungs and pleural spaces: There is no airspace consolidation typical for pneumonia. Dependent atelectasis is seen at the lung bases. The trachea and central airways are clear. A 5 mm pleural based nodule at the right lung base is seen on image #141 and a 5 mm focus of pleural-based nodularity in the right middle lobe along the minor fissure is seen on image #171. These are unchanged from 2017 and of doubtful significance. Mediastinum: There is no mediastinal lymphadenopathy. Evie: Clear. Axillae: There is no axillary lymphadenopathy. Upper abdomen: Numerous partially visualized bilateral renal cysts measure up to 8 cm. There is a moderate hiatal hernia. A duodenal diverticulum is partially visualized. Diverticula are noted in the partially visualized colon without CT evidence of acute diverticulitis. Skeletal structures: The skeletal structures are osteopenic. Degenerative change is noted in the shoulders and thoracic spine. No lytic or blastic bony lesions are seen. IMPRESSION: 1. There is no evidence of pulmonary embolus in the main, lobar, or segmental pulmonary arteries. 2. Cardiomegaly. 3. There is no airspace consolidation or pleural effusion. 4. Additional findings as above. ACT 112: Negative or not required by law. Electronically signed by: Isaac Chinchilla M.D. 08/05/2021 11:45 AM Discharge Plan Visit Data Chief Complaint: Chest Pain Stated Complaint: CHEST PAINS ED Provider: Antony Wen Discharge Problem: Chest pain Forms Stand Alone Forms: [facility] Surgical Prescriptions Prescriptions: No Action atorvastatin 40 mg tablet 40 mg PO DAILY RF: 0 lisinopril-hydrochlorothiazide 20-12.5 mg tablet 2 tab PO QAM RF: 0 aspirin [Aspir-Low] 81 mg Tablet,Delayed Release (Dr/Ec) 81 mg PO DAILY RF: 0 Vitamin B-12 50 mcg Tablet 0 mcg PO DAILY RF: 0 nitroglycerin [Nitrostat] 0.4 mg Tablet, Sublingual 0 mg sublingual UD PRN (Reason: Chest Pain) RF: 0 metoprolol succinate 25 mg tablet extended release 24 hr 25 mg PO DAILY RF: 0 cholecalciferol (vitamin D3) [Vitamin D3] 25 mcg (1,000 unit) Tablet 0 mcg PO DAILY RF: 0 potassium 99 mg Tablet 99 mg PO DAILY RF: 0 Referrals Referrals: Riccardo Goff MD [Primary Care Provider] -
[2021-08-05 10:54] LABS: Basophils # (auto) 0.03 K/uL (0-0.2); Basophils % (auto) 0.5 %; Eosinophils # (auto) 0.11 K/uL (0-0.5); Eosinophils % (auto) 1.7 %; Hematocrit (blood only) 41.7 % (42-52); Hemoglobin 14.7 g/dL (14.0-18.0); Immature Granulocytes # (auto) 0.01 K/uL (0.00-0.02); Immature Granulocytes % (auto) 0.2 %; Lymphocytes # (auto) 1.53 K/uL (1.2-3.4); Lymphocytes % (auto) 23.2 %; Mean Corpuscular Hemoglobin 32.7 pg (25-34); Mean Corpuscular Hgb Conc 35.3 g/dL (32-36); Mean Corpuscular Volume 92.9 fL (80-100); Mean Platelet Volume 8.9 fL (7.4-10.4); Monocytes # (auto) 0.66 K/uL (0.11-0.59); Neutrophils # (auto) 4.26 K/uL (1.4-6.5); Neutrophils % (auto) 64.4 %; Platelet Count 235 K/uL (130-400); RDW Coefficient of Variation 13.2 % (11.5-14.5); RDW Standard Deviation 45.1 fL (36.4-46.3); Red Blood Count 4.49 M/uL (4.7-6.1)
[2021-08-05 11:06] LABS: Partial Thromboplastin Ratio 0.9; Partial Thromboplastin Time 25.8 Seconds (21.0-31.0); Prothrombin Time 11.1 Seconds (9.0-12.0)
[2021-08-05 11:08] LABS: Albumin Globulin Ratio 1.4 (0.9-2); Albumin Level 4.2 gm/dl (3.4-5.0); BUN Creatinine Ratio 18.8 (10-20); Bilirubin,Total 1.1 mg/dl (0.2-1.0); Calcium 9.7 mg/dl (8.5-10.1); Est GFR (African American) 81.6 ml/min; Est GFR (Non-African American) 70.4 ml/min; Globulin 2.9 gm/dl (2.5-4.0); Potassium 4.1 mmol/L (3.5-5.1); Total Protein 7.1 gm/dl (6.0-8.3)
[2021-08-05 11:11] LABS: Troponin I 0.05 ng/ml (0-0.04)
--- NOTE | 2021-08-05 11:15 | XRay Report ---
SINGLE VIEW CHEST CLINICAL HISTORY: Atypical chest pain. FINDINGS: An AP, portable, upright chest radiograph is correlated with chest CT dated 11/11/2016. The examination is degraded by portable technique and apical lordotic positioning. The patient is status post midline sternotomy. The heart is enlarged noting atherosclerotic calcification of the thoracic a luis. Chronic interstitial thickening is similar to previous. There is bibasilar scarring/atelectasis . No airspace consolidation or large pleural effusion is identified. No pneumothorax is seen. The ske letal structures are osteopenic. The bony thorax is grossly intact. IMPRESSION: Cardiomegaly with no acute cardiopulmonary abnormality. ACT 112: Negative or not required by law. Electronically signed by: Isaac Chinchilla M.D. 08/05/2021 11:14 AM
[2021-08-05] MEDS ORDERED: OPTIRAY 320 125ml IV ONE (11:33)
--- NOTE | 2021-08-05 11:46 | CT Scan Report ---
CT ANGIOGRAM OF THE CHEST CLINICAL HISTORY: Cough and dyspnea. COMPARISON STUDY: Chest CT dated 11/11/2016. Chest x-ray dated 08/05/2021. TECHNIQUE: Following the IV administration of 119 cc of Optiray 320, CT angiogram of the chest was pe rformed from the upper abdomen to the thoracic inlet utilizing the pulmonary embolus protocol. Images are reviewed in the axial, sagittal, and coronal planes. 3-D MIPS images are created and assessed. I V contrast was administered without complication. A dose lowering technique was utilized adhering to the principles of ALARA. CT DOSE: 673.01 mGy.cm FINDINGS: Thyroid: Imaged portions of the thyroid gland are normal in size and attenuation. Thoracic aorta: There is atherosclerotic calcification of the thoracic aorta, which is normal in dawn anni and demonstrates standard 3-vessel arch anatomy. No dissection is seen. Pulmonary vasculature: The main pulmonary arteries are dilated suggesting pulmonary artery hypertensi on. There are no filling defects identified in main, lobar, or segmental pulmonary branches to sugges t pulmonary embolus. Heart: The patient is status post midline sternotomy. The heart is enlarged and without pericardial e ffusion. The coronary arteries are densely calcified. Lungs and pleural spaces: There is no airspace consolidation typical for pneumonia. Dependent atelect asis is seen at the lung bases. The trachea and central airways are clear. A 5 mm pleural based nodul e at the right lung base is seen on image #141 and a 5 mm focus of pleural-based nodularity in the ri ght middle lobe along the minor fissure is seen on image #171. These are unchanged from 2017 and of d oubtful significance. Mediastinum: There is no mediastinal lymphadenopathy. Evie: Clear. Axillae: There is no axillary lymphadenopathy. Upper abdomen: Numerous partially visualized bilateral renal cysts measure up to 8 cm. There is a mod erate hiatal hernia. A duodenal diverticulum is partially visualized. Diverticula are noted in the pa rtially visualized colon without CT evidence of acute diverticulitis. Skeletal structures: The skeletal structures are osteopenic. Degenerative change is noted in the shou lders and thoracic spine. No lytic or blastic bony lesions are seen. IMPRESSION: 1. There is no evidence of pulmonary embolus in the main, lobar, or segmental pulmonary arteries. 2. Cardiomegaly. 3. There is no airspace consolidation or pleural effusion. 4. Additional findings as above. ACT 112: Negative or not required by law. Electronically signed by: Isaac Chinchilla M.D. 08/05/2021 11:45 AM
[2021-08-05] MEDS ORDERED: ASPIRIN CHEW 324 MG PO STA (12:40)
--- NOTE | 2021-08-05 13:47 | History & Physical Report ---
Date of Service August 05, 2021 Assessment & Plan (1) Chest pain: Plan: Troponin positive though minimally elevated in ED. Clinical picture concerning for cardiac etiology - Admit for observation in PCU - Trend troponin - Repeat EKG in AM - Consult cardiology for additional recommendations - pt would like to establish with [facility] for future cardiac care - Will check x-ray of C-spine due to some numbness in the right neck - r/o impingement (2) CAD (coronary artery disease): (3) HTN (hypertension): (4) Dyslipidemia: Plan: - Continue other home meds as appropriate - Check lipid panel in AM Pt seen and reviewed with collaborating physician, Dr. Berger. Plan discussed and as outlined as above. Code Status: Full code Primo Larsen PA-C History of Present Illness Chief Complaint: Chest Pain Primary Care Provider: Riccardo Goff MD This is a 81 y/o male with a PMH of CAD s/p CABG, HTN, dyslipidemia, OA, nephrolithiasis, and bilateral carotid artery stenosis who presents to the ED with chest pain x 3-4 days. He reports he had a CABG in 2009 and has done well since then. He does not recall his last stress test but reports it was likely several years ago. 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 On Monday (three days ago), he started abruptly with chest pain - was sleeping and had the sudden onset of chest discomfort across his entire chest and radiating to his right neck. Associated feeling of impending doom. The worst of the discomfort lasted a few minutes and then pain become more sharp in his chest and radiated to his back. Pain is worse with exertion. Pain has not improved over time so pt saw PCP yesterday who recommended ED evaluation. Pt decided to come to the ED today because of the persistent nature of his symptoms. No associated diaphoresis, dizziness, nausea. Some residual numb sensation in his right neck. No WALDRON. No fevers, chills, unexplained wt changes. He has not noted edema peripherally but he was told to cut back on salt at last PCP visit because the PCP did. Allergies Allergy/AdvReac Type Severity Reaction Status Date / Time No Known Allergies Allergy Unverified 08/05/21 13:17 Home Medications Medication Instructions Recorded Confirmed Type aspirin 81 mg tablet,delayed 81 mg PO DAILY 08/05/21 08/05/21 History release atorvastatin 40 mg tablet 40 mg PO DAILY 08/05/21 08/05/21 History cholecalciferol (vitamin D3) 25 0 mcg PO DAILY 08/05/21 08/05/21 History mcg (1,000 unit) tablet (Vitamin D3) cyanocobalamin (vitamin B-12) 50 0 mcg PO DAILY 08/05/21 08/05/21 History mcg tablet (Vitamin B-12) lisinopril 20 2 tab PO QAM 08/05/21 08/05/21 History mg-hydrochlorothiazide 12.5 mg tablet metoprolol succinate 25 mg 25 mg PO DAILY 08/05/21 08/05/21 History tablet,extended release 24 hr nitroglycerin 0.4 mg sublingual 0 mg SUBLINGUAL UD PRN 08/05/21 08/05/21 History tablet (Nitrostat) potassium 99 mg tablet 99 mg PO DAILY 08/05/21 08/05/21 History Past Med/Surg History Medical History Bilateral carotid artery stenosis CAD (coronary artery disease) "2009 - CABG x 3 2015 - abnormal thallium scan suggestive of ischemia however medical management was suggested" Cyst, kidney, acquired Dyslipidemia HTN (hypertension) Knee osteoarthritis Nephrolithiasis Surgical History History of cardiac cath History of incisional hernia repair S/P CABG x 3 Family History Mother Hypertension Heart disease Father Hypertension Stroke Brother Hypertension Heart disease Sister Cancer Social History Smoking Status: Former smoker Smoking End Date: 1972; Hx Alcohol Use: No Hx Substance Use: No Preferred Language: [place] [employer] 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[employer]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 [employer]inery Required: No marital status: Current Living Situation: Spouse current occupational status: employed Feels Safe at Home: Yes Safety Concerns: Feels Safe At This Time Assistive Devices: Denture - Upper and Glasses Review of Systems Review of Systems: All systems reviewed & are unremarkable except as noted in HPI & below Constitutional: + fatigue; no fever and no chills Eyes: no diplopia and no worsening vision Ear, Nose, Mouth, Throat: no nasal congestion, no nasal discharge and no sore throat Respiratory: no cough, no dyspnea and no wheezing Cardiovascular: as per Subjective / HPI; no palpitations, no lightheadedness, no syncope and no edema Gastrointestinal: no abdominal pain, no nausea, no vomiting, no diarrhea/loose stools and no blood in stools Genitourinary: no dysuria or no hematuria Musculoskeletal: as per Subjective / HPI; no joint pain and no myalgia Integumentary: no yellowing of the skin Neurologic: no dizziness, no syncope and no headache(s) Psychiatric: no depression and no anxiety Physical Exam Constitutional: well developed and well nourished; no acute distress Eyes: PERRL, conjunctivae normal, anicteric sclerae Neck: trachea midline Respiratory: no respiratory distress and no labored breathing Auscultation: lungs clear to auscultation bilaterally; no rales, no rhonchi and no wheezes Cardiovascular: Rate/Rhythm: regular rate and regular rhythm Heart Sounds: no gallop, no murmur and no cardiac rub Vessels: dorsalis pedis pulses present and radial pulses present; no carotid bruit Extremities: normal capillary refill; no pedal edema Gastrointestinal (Abdomen): Inspection/Auscultation: normal bowel sounds; abdomen not distended Percussion/Palpation: abdomen soft; abdomen nontender Musculoskeletal: Head/Neck/Chest: normocephalic, head atraumatic and neck supple Skin: no rashes, warm and dry Neurologic: moves all extremities; no focal motor deficits Psychiatric: A+Ox3, euthymic affect Results & Data Results & Data ([facility]) Vital Signs (Past 12 Hours) Vital Signs Temp Pulse Pulse Resp BP BP Pulse Ox 08/05/21 13:20 54 L 16 148/82 H 97 08/05/21 12:35 57 L 24 169/84 H 94 08/05/21 12:00 50 L 16 146/81 H 97 08/05/21 11:00 57 L 18 140/79 95 08/05/21 10:45 95 08/05/21 10:30 59 L 24 149/75 H 96 08/05/21 10:17 36.4 C L 60 18 150/77 H 95 Laboratory Results Laboratory Results - last 24 hr 08/05/21 08/05/2122 10:31 10:31 10:31 WBC 6.60 RBC 4.49 L Hgb 14.7 Hct 41.7 L MCV 92.9 MCH 32.7 MCHC 35.3 RDW Std Deviation 45.1 RDW Coeff of Susan 13.2 Plt Count 235 MPV 8.9 Immature Gran % (Auto) 0.2 Neut % (Auto) 64.4 Lymph % (Auto) 23.2 [place] % (Auto) 10.0 Eos % (Auto) 1.7 Baso % (Auto) 0.5 Neut # (Auto) 4.26 Lymph # (Auto) 1.53 [place] # (Auto) 0.66 H Eos # (Auto) 0.11 Baso # (Auto) 0.03 Immature Gran # (Auto) 0.01 PT 11.1 INR 1.0 APTT 25.8 PTT Ratio 0.9 Sodium 138 Potassium 4.1 Chloride 104 Carbon Dioxide 27 Anion Gap 7 BUN 19 Creatinine 1.01 Est Cr Clr Drug Dosing 66.0 Est GFR ( Amer) 81.6 Est GFR (Non-Af Amer) 70.4 BUN/Creatinine Ratio 18.8 Glucose 133 H Calcium 9.7 Total Bilirubin 1.1 H AST 21 ALT 28 Alkaline Phosphatase 56 Troponin I 0.05 H* Total Protein 7.1 Albumin 4.2 Globulin 2.9 Albumin/Globulin Ratio 1.4 Lipase 23 SARS-CoV-2, RNA, NAAT 08/05/21 12:48 WBC RBC Hgb Hct MCV MCH MCHC RDW Std Deviation RDW Coeff of Susan Plt Count MPV Immature Gran % (Auto) Neut % (Auto) Lymph % (Auto) [place] % (Auto) Eos % (Auto) Baso % (Auto) Neut # (Auto) Lymph # (Auto) [place] # (Auto) Eos # (Auto) Baso # (Auto) Immature Gran # (Auto) PT INR APTT PTT Ratio Sodium Potassium Chloride Carbon Dioxide Anion Gap BUN Creatinine Est Cr Clr Drug Dosing Est GFR ( Amer) Est GFR (Non-Af Amer) BUN/Creatinine Ratio Glucose Calcium Total Bilirubin AST ALT Alkaline Phosphatase Troponin I Total Protein Albumin Globulin Albumin/Globulin Ratio Lipase SARS-CoV-2, RNA, NAAT NEGATIVE Diagnostic Findings Chest X-ray 08/05/21 - IMPRESSION: Cardiomegaly with no acute cardiopulmonary abnormality. Chest CTA 08/05/21 - IMPRESSION: 1. There is no evidence of pulmonary embolus in the main, lobar, or segmental pulmonary arteries. 2. Cardiomegaly. 3. There is no airspace consolidation or pleural effusion. 4. Additional findings as above. Medications Administered Discontinued Medications Aspirin (Aspirin Chew 324 Mg) 324 mg PO NOW STA Stop: 08/05/21 12:41 Last Admin: 08/05/21 12:44 Dose: 324 mg Documented by: [id number] Sodium Chloride (Nss 1000ml) 1,000 mls @ 999 mls/hr IV .Q1H1M ONE Stop: 08/05/21 11:51 Last Infusion: 08/05/21 12:36 Dose: 0 mls/hr Documented by: [id number] Admin: 08/05/21 11:40 Dose: 999 mls/hr Documented by: [id number] Ioversol (Optiray 320 125ml) 119 ml IV ONCE ONE Stop: 08/05/21 11:34 Last Admin: 08/05/21 11:33 Dose: 119 ml Documented by: [id number] Code Status & VTE Plan VTE Prophylaxis Plan VTE Prophylaxis will be ordered: Yes Supervising Physician Co-Signing Physician Notes I have seen and examined the patient and have discussed the case with the provider above. I agree with the assessment and plan as stated. The patient is a 81 yo man with a history of CABG who presents with worsening chest pain across his anterior chest (both sides) with exertion. This has been ongoing for the past few days and is associated with numbness in the right jaw and neck area. He denies SOB. The chest pain is still present at rest today, and he is concerned with his history. Although he has nitroglycerin at home, he denies using any for the pain. He reports his PCP told him his BP had been around 160 systolic recently and advised him on avoiding salt. 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 He does note some neck pain that is nonspecific in the last few months, lasting just a few minutes at a time and denies any electric shock symptoms down the arms bilaterally. He denies any trauma to his neck or right shoulder. On exam he is mentating clearly and appears WNWD with full range of motion of his right shoulder. He is ambulating without difficulty. Skin is warm and dry. Lungs are clear to auscultation throughout. Cardiac exam reveals no carotid bruits, S1/2 heard without m/g/r, 2+ radial pulses bilaterally. Abdomen is soft, NTND. No peripheral edema noted. Troponin is 0.05, CBC is normal, coags normal, BMP is normal with a creatinine of 1.01. Lipase is normal at 23. COVID is negative. EKG reveals SB 53 with no acute ischemic changes. He has ongoing pain for the past 3 days with an accelerating angina picture. He is on appropriate medical therapy for CAD and for the past 10 years post bypass, denies any issues with angina or exercise intolerance. He is >65 yrs, with known CAD and a slightly elevated trop (normal 0.04). Will treat him for unstable angina and presumed ACS as above. Agree with trending troponins and monitoring on telemetry overnight. Trend EKG daily. Cont ASA, Atorvastatin 40mg, Lisinopril per home medications. He was given a SL nitro and noted some improvement in his discomfort. Will continue with nitropaste overnight and add anticoagulant therapy with heparin. Cardiology is consulted. Numbness in the neck and jaw may be 2/2 cardiac etiology, however, patient reported some neck pain and has some MSK tenderness to palpation of right upper back area. He has a physical job and may be at risk for repetitive motion injury. C-spine xray reveals mod-severe multilevel degenerative disc disease and facet arthrosis. Cont to monitor. DO Ab (1) Chest pain Chest pain type: unspecified Qualified Code(s): R07.9 - Chest pain, unspecified
[2021-08-05] MEDS ORDERED: ACETAMINOPHEN 325 MG TAB PO PRN (15:07)
[2021-08-05] MEDS ORDERED: NITROGLYCERIN SL 0.4 MG/TAB TAB SL PRN (15:07)
--- NOTE | 2021-08-05 16:10 | XRay Report ---
XR cervical spine 2 or 3V CLINICAL HISTORY: neck numbness - right side. ?impingement COMPARISON STUDY: No previous studies for comparison. FINDINGS: There is slight reversal of the normal cervical lordosis. No acute cervical spine fracture is identified by radiography. Moderate to severe multilevel degenerative disc disease and facet arthr osis is present. Prevertebral soft tissues are unremarkable. IMPRESSION: 1. No acute cervical spine fracture or subluxation identified. 2. Moderate to severe multilevel degenerative disc disease and facet arthrosis within the cervical sp ine. ACT 112: Negative or not required by law. Electronically signed by: Saad Velez M.D. 08/05/2021 4:09 PM
[2021-08-05] MEDS ORDERED: Heparin IV Adult Wt-Based Standard *NO* Bolus Protocol IV SCH (18:00)
[2021-08-05] MEDS ORDERED: NITROGLYCERIN 2% OINTMENT 30GM TUBE EXT SCH (18:00)
[2021-08-05] MEDS: HEPARIN SODIUM/DEXTROSE 25,000 UNITS/500 ML BAG IV SCH (18:28)
[2021-08-05] MEDS ORDERED: MoRPHine SULFATE 2 MG/ML CARP IV PRN (18:48)
[2021-08-06 00:54] LABS: Partial Thromboplastin Ratio 2.1
[2021-08-06 01:13] LABS: Partial Thromboplastin Time 56.7 Seconds (21.0-31.0)
[2021-08-06 06:49] LABS: Basophils # (auto) 0.03 K/uL (0-0.2); Basophils % (auto) 0.4 %; Eosinophils # (auto) 0.15 K/uL (0-0.5); Hematocrit (blood only) 41.4 % (42-52); Hemoglobin 14.7 g/dL (14.0-18.0); Immature Granulocytes # (auto) 0.01 K/uL (0.00-0.02); Immature Granulocytes % (auto) 0.1 %; Lymphocytes # (auto) 1.88 K/uL (1.2-3.4); Lymphocytes % (auto) 24.6 %; Mean Corpuscular Hemoglobin 32.8 pg (25-34); Mean Corpuscular Hgb Conc 35.5 g/dL (32-36); Mean Corpuscular Volume 92.4 fL (80-100); Mean Platelet Volume 9.1 fL (7.4-10.4); Monocytes # (auto) 0.89 K/uL (0.11-0.59); Monocytes % (auto) 11.6 %; Neutrophils # (auto) 4.68 K/uL (1.4-6.5); Neutrophils % (auto) 61.3 %; Platelet Count 217 K/uL (130-400); RDW Coefficient of Variation 13.3 % (11.5-14.5); RDW Standard Deviation 44.7 fL (36.4-46.3); Red Blood Count 4.48 M/uL (4.7-6.1); White Blood Count 7.64 K/uL (4.8-10.8)
[2021-08-06 07:32] LABS: BUN Creatinine Ratio 21.3 (10-20); Bilirubin Direct 0.2 mg/dl (0-0.2); Bilirubin,Total 1.2 mg/dl (0.2-1.0); Calcium 9.4 mg/dl (8.5-10.1); Chol HDL Ratio 2.4 (0-5); Creatinine Clr Calc Pharmacy 71.3 ml/min; Est GFR (Non-African American) 76.8 ml/min; Potassium 3.8 mmol/L (3.5-5.1); Total Protein 6.8 gm/dl (6.0-8.3)
[2021-08-06] MEDS ORDERED: NON-FORMULARY MEDICATION (Potassium 99 mg Tablet) PO SCH (09:00)
[2021-08-06] MEDS ORDERED: ATORVASTATIN 40 MG TAB PO SCH (09:00)
[2021-08-06] MEDS ORDERED: LISINOPRIL/HCTZ 20/12.5MG 1 TAB TAB PO SCH (09:00)
--- NOTE | 2021-08-06 09:01 | Cardiology Consultation ---
Date of Consultation August 06, 2021 Assessment & Plan (1) Chest pain at rest: (2) Elevated troponin: (3) Dyslipidemia: (4) HTN (hypertension): (5) ASCVD (arteriosclerotic cardiovascular disease): 81-year-old male with longstanding history of multivessel coronary artery disease status post CABG x3 in 2009. Patient presents this admission with atypical resting upper back pain radiating into the chest with associated right cheek and right upper anterior chest numbness. Discomfort was initially reproducible with palpation and aggravated by movement of the right upper extremity. EKG's without acute changes. Troponin minimally elevated at 0.05 ng/mL x 3. Options of management discussed. Recommend resting echocardiography then likely proceeding with Lexiscan nuclear stress testing. Supervising Physician Co-Signing Physician Notes I have seen and examined the patient. I reviewed the medical record and discussed the case with Mr. Maoyrga. I agree with the plan as outlined above. I will be in the stress lab with the patient and reviewed the study when it is complete. If the study is negative then patient needs no additional cardiac testing. History of Present Illness Reason for Consultation: Chest pain, history of CABG Requesting Physician: Ab Larsen Attending Physician: Lan History of Present Illness Mr. Oni Reynolds is a very pleasant 81-year-old male who was admitted to [facility] on August 05, 2020, evaluation of chest discomfort. The patient awoke around 4 AM four days ago with a terrible pain just medial to the right scapula. He describes it as a sudden jerk of sharp pain that seemed to radiate into the right upper chest and was associated with a little bit of numbness in the right cheek and right upper chest. The pain in the back was definitely reproducible with movement of the right upper extremity. The pain in the back resolved however the chest pain lingered for days, remaining constant until today. EKG on presentation revealed sinus bradycardia at 56 bpm with a first-degree AV block. EKG this morning reveals sinus bradycardia at 58 bpm with a first-degree AV block. Troponin elevated at 0.05 x 3. Chest x-ray on presentation revealed cardiomegaly with no acute cardiopulmonary abnormality. CTA of the chest showed no evidence of PE and no aortic catastrophe. The main pulmonary arteries are notably dilated suggesting pulmonary artery hypertension. Cervical spine x-ray showed moderate to severe multilevel degenerative disc disease with facet arthrosis within the cervical spine. The patient has a longstanding history of ASCVD. In 2009 he was initially evaluated in [place] secondary to sharp pain in the middle of his back. Three months later he was evaluated at [facility] where diagnostic cardiac catheterization revealed multivessel coronary artery disease, undergoing CABG x3 and receiving a ALVARADO graft to the LAD, a SVG graft from the aorta to the diagonal branch, and an SVG from the aorta to the obtuse marginal branch. Thereafter, he has been followed at [facility] and managed medically. He describes having nuclear stress testing x 2-3. Nuclear stress testing at one point, per limited available documentation, revealed diagonal branch ischemia and it was presumed that vein graft was occluded for which medical management was recommended. He notes that following the last nuclear stress test amlodipine was added. Additional medical issues include hypertension, dyslipidemia, carotid artery stenosis, kidney cysts, nephrolithiasis, and knee pain for which anticipates possible future surgical intervention. Social History: Quit smoking at the age of 32. No alcohol. No illegal drug use. . 7 children. 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 Father with cirrhosis; he was an alcoholic. Patient has 6 brothers and 2 sisters. 1 sister with an unknown cancer. Allergies Allergy/AdvReac Type Severity Reaction Status Date / Time No Known Allergies Allergy Unverified 08/05/21 13:17 Home Medications Medication Instructions Recorded Confirmed Type aspirin 81 mg tablet,delayed 81 mg PO DAILY 08/05/21 08/05/21 History release atorvastatin 40 mg tablet 40 mg PO DAILY 08/05/21 08/05/21 History cholecalciferol (vitamin D3) 25 0 mcg PO DAILY 08/05/21 08/05/21 History mcg (1,000 unit) tablet (Vitamin D3) cyanocobalamin (vitamin B-12) 50 0 mcg PO DAILY 08/05/21 08/05/21 History mcg tablet (Vitamin B-12) lisinopril 20 2 tab PO QAM 08/05/21 08/05/21 History mg-hydrochlorothiazide 12.5 mg tablet metoprolol succinate 25 mg 25 mg PO DAILY 08/05/21 08/05/21 History tablet,extended release 24 hr nitroglycerin 0.4 mg sublingual 0 mg SUBLINGUAL UD PRN 08/05/21 08/05/21 History tablet (Nitrostat) potassium 99 mg tablet 99 mg PO DAILY 08/05/21 08/05/21 History Patient History Medical History Bilateral carotid artery stenosis CAD (coronary artery disease) "2010 - CABG x 3 2015 - abnormal thallium scan suggestive of ischemia however medical management was suggested" Cyst, kidney, acquired Dyslipidemia HTN (hypertension) Knee osteoarthritis Nephrolithiasis Surgical History History of cardiac cath History of incisional hernia repair S/P CABG x 3 Family History Mother Hypertension Heart disease Father Hypertension Stroke Brother Hypertension Heart disease Sister Cancer Social History Smoking Status: Former smoker Smoking End Date: 1972; Hx Alcohol Use: No Hx Substance Use: No Preferred Language: [place] 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 No fevers, sweats, or chills. HENT: No amaurosis fugax. Hard of hearing. Pulmonary Denies history of asthma or COPD Cardiac: See above. GI/Abd: + GERD. No melana or hematochezia. Renal: See above. Liver: Negative. Vascular: + Carotid disease. No history of AAA Hematologic: No coagulation disorder, anemia, or abnormal bleeding. Musculoskeletal: Knee pain. Skin: No rash. Neurologic: No history of TIA or CVA. Male : BPH. Nocturia x 2. Endocrine: Denies DM. Complete Review of Systems is as stated above, negative, or noncontributory. Physical Exam Physical Exam: General: A&Ox3. NAD. [place]. HENT: Normocephalic. Atraumatic. Eyes: PER. Conjunctiva pink, sclera clear. Neck: No carotid bruits. No JVD. Heart: RRR. No murmur. No rub. No gallop. PMI is nondisplaced. Lungs: Clear to auscultation. Abdomen: +BS. Soft. Nontender. No masses or organomegaly. Extremities: Mild edema. No clubbing. No cyanosis. Limited neurological examination is without focal deficits. Pulses: radial=2/4, posterior tibial=2/4. Results & Data ([facility]) Vital Signs (Past 12 Hours) Vital Signs Temp Pulse Pulse Resp BP Pulse Ox 08/06/21 07:47 36.4 C L 64 16 129/74 96 08/06/21 06:20 60 08/06/21 03:44 36.7 C 61 16 144/84 H 96 08/05/21 23:36 52 L 08/05/21 23:13 37.0 C 64 19 144/87 H 96 Laboratory Results Laboratory Results - last 24 hr 08/05/21 08/05/21 08/05/21 10:31 10:31 10:31 WBC 6.60 RBC 4.49 L Hgb 14.7 Hct 41.7 L MCV 92.9 MCH 32.7 MCHC 35.3 RDW Std Deviation 45.1 RDW Coeff of Susan 13.2 Plt Count 235 MPV 8.9 Immature Gran % (Auto) 0.2 Neut % (Auto) 64.4 Lymph % (Auto) 23.2 [place] % (Auto) 10.0 Eos % (Auto) 1.7 Baso % (Auto) 0.5 Neut # (Auto) 4.26 Lymph # (Auto) 1.53 [place] # (Auto) 0.66 H Eos # (Auto) 0.11 Baso # (Auto) 0.03 Immature Gran # (Auto) 0.01 PT 11.1 INR 1.0 APTT 25.8 PTT Ratio 0.9 Sodium 138 Potassium 4.1 Chloride 104 Carbon Dioxide 27 Anion Gap 7 BUN 19 Creatinine 1.01 Est Cr Clr Drug Dosing 66.0 Est GFR ( Amer) 81.6 Est GFR (Non-Af Amer) 70.4 BUN/Creatinine Ratio 18.8 Glucose 133 H Calcium 9.7 Total Bilirubin 1.1 H Direct Bilirubin AST 21 ALT 28 Alkaline Phosphatase 56 Troponin I 0.05 H* Total Protein 7.1 Albumin 4.2 Globulin 2.9 Albumin/Globulin Ratio 1.4 Triglycerides Cholesterol LDL Cholesterol, Calc VLDL Cholesterol, Calc HDL Cholesterol Cholesterol/HDL Ratio Lipase 23 SARS-CoV-2, RNA, NAAT 08/05/21 08/05/21 08/05/21 12:48 16:05 22:40 WBC RBC Hgb Hct MCV MCH MCHC RDW Std Deviation RDW Coeff of Susan Plt Count MPV Immature Gran % (Auto) Neut % (Auto) Lymph % (Auto) [place] % (Auto) Eos % (Auto) Baso % (Auto) Neut # (Auto) Lymph # (Auto) [place] # (Auto) Eos # (Auto) Baso # (Auto) Immature Gran # (Auto) PT INR APTT PTT Ratio Sodium Potassium Chloride Carbon Dioxide Anion Gap BUN Creatinine Est Cr Clr Drug Dosing Est GFR ( Amer) Est GFR (Non-Af Amer) BUN/Creatinine Ratio Glucose Calcium Total Bilirubin Direct Bilirubin AST ALT Alkaline Phosphatase Troponin I 0.05 H* 0.05 H* Total Protein Albumin Globulin Albumin/Globulin Ratio Triglycerides Cholesterol LDL Cholesterol, Calc VLDL Cholesterol, Calc HDL Cholesterol Cholesterol/HDL Ratio Lipase SARS-CoV-2, RNA, NAAT NEGATIVE 08/06/21 08/06/21 08/06/21 00:22 06:07 06:07 WBC 7.64 RBC 4.48 L Hgb 14.7 Hct 41.4 L MCV 92.4 MCH 32.8 MCHC 35.5 RDW Std Deviation 44.7 RDW Coeff of Susan 13.3 Plt Count 217 MPV 9.1 Immature Gran % (Auto) 0.1 Neut % (Auto) 61.3 Lymph % (Auto) 24.6 [place] % (Auto) 11.6 Eos % (Auto) 2.0 Baso % (Auto) 0.4 Neut # (Auto) 4.68 Lymph # (Auto) 1.88 [place] # (Auto) 0.89 H Eos # (Auto) 0.15 Baso # (Auto) 0.03 Immature Gran # (Auto) 0.01 PT INR APTT 56.7 H* PTT Ratio 2.1 Sodium 137 Potassium 3.8 Chloride 104 Carbon Dioxide 24 Anion Gap 9 BUN 20 Creatinine 0.94 Est Cr Clr Drug Dosing 71.3 Est GFR ( Amer) 89.0 Est GFR (Non-Af Amer) 76.8 BUN/Creatinine Ratio 21.3 H Glucose 97 Calcium 9.4 Total Bilirubin 1.2 H Direct Bilirubin 0.2 AST 17 ALT 25 Alkaline Phosphatase 55 Troponin I Total Protein 6.8 Albumin 4.0 Globulin Albumin/Globulin Ratio Triglycerides 62 Cholesterol 126 LDL Cholesterol, Calc 61 VLDL Cholesterol, Calc 12 HDL Cholesterol 53 Cholesterol/HDL Ratio 2.4 Lipase SARS-CoV-2, RNA, NAAT Diagnostic Findings Continuous telemetry monitoring reveals sinus rhythm with sinus arrhythmia, first-degree AV block, premature atrial contractions. Heart rates predominantly in the 60s.
[2021-08-06] MEDS: ASPIRIN 81 MG ECTAB PO SCH (09:08)
[2021-08-06] MEDS: ATORVASTATIN 40 MG TAB PO SCH (09:09)
[2021-08-06] MEDS ORDERED: REGADENOSON 0.4 MG/5 ML SYR IV ONE (12:12)
[2021-08-06] MEDS: HEPARIN SODIUM/DEXTROSE 25,000 UNITS/500 ML BAG IV SCH (12:22)
--- NOTE | 2021-08-06 14:18 | Hospitalist Progress Note ---
Date of Service August 06, 2021 Assessment & Plan (1) Chest pain: (2) CAD (coronary artery disease): (3) HTN (hypertension): (4) Dyslipidemia: Plan: 81 year old male with h/o multivessel CAD s/p CABGx3 in 2009 presented to the ED with chest pain since Monday. Chest pain, concerning for UA- pain better on heparin drip. trop x3 at 0.05. Stress test today abnormal with mild ischemia of inferior and inferior basilar myocardium with normal LV function. Unfortunately late to get cardiac cath today per cardio. Planning for cardiac cath on Monday per cardiology. Continue aspirin, beta rufino, statin, heparin drip Essential HTN- stable, continue prinzide, toprol HLD- continue statin Dispo- Abnormal stress test today. Plan to cardiac cath on Monday. Admission and Anticipated Discharge Date Admission Date: August 05, 2021 Subjective He feels better since admission and on heparin drip. Chest pain is resolved. Denies any shortness of breath, nausea, vomiting. States nitro patch gave him headache and felt better after discontinuation. Physical Exam Physical Exam: General: Sitting comfortably in chair, not in distress, on room air HEENT: EOMI, LILIANA, MMM Chest: Clear breath sounds bilaterally, no wheezes or crackles CVS: Regular rate and rhythm, normal heart sounds, no murmur Abdomen: Soft, non tender, not distended, normal bowel sounds Neuro: Awake, alert, oriented, conversing well, non focal Extremities: No cyanosis, clubbing or edema Results & Data Results & Data ([facility]) Vital Signs (Past 12 Hours) Vital Signs Temp Pulse Pulse Resp BP Pulse Ox 08/06/21 12:51 36.3 C L 65 18 140/71 98 08/06/21 07:47 36.4 C L 64 16 129/74 96 08/06/21 06:20 60 08/06/21 03:44 36.7 C 61 16 144/84 H 96 Laboratory Results Short CBC 08/06/21 Range/Units 06:07 WBC 7.64 (4.8-10.8) K/uL Hgb 14.7 (14.0-18.0) g/dL Hct 41.4 L (42-52) % Plt Count 217 (130-400) K/uL BMP 08/06/21 06:07 Sodium 137 Potassium 3.8 Chloride 104 Carbon Dioxide 24 BUN 20 Creatinine 0.94 Glucose 97 Calcium 9.4 Cardiac Enzymes 08/05/21 08/05/21 Range/Units 16:05 22:40 Troponin I 0.05 H* 0.05 H* (0-0.04) ng/ml Liver Function 08/06/21 Range/Units 06:07 Total Bilirubin 1.2 H (0.2-1.0) mg/dl Direct Bilirubin 0.2 (0-0.2) mg/dl AST 17 (13-39) U/L ALT 25 (7-52) U/L Alkaline Phosphatase 55 (34-104) U/L Albumin 4.0 (3.4-5.0) gm/dl Medications Administered Current Inpatient Medications Acetaminophen (Acetaminophen 325 Mg Tab) 650 mg PO Q4H PRN PRN Reason: Pain or Fever Stop: 09/04/21 15:06 Aspirin (Aspirin 81 Mg Ectab) 81 mg PO DAILY [facility] Stop: 09/05/21 08:59 Last Admin: 08/06/21 09:08 Dose: 81 mg Documented by: Atorvastatin Calcium (Atorvastatin 40 Mg Tab) 80 mg PO DAILY [facility] Stop: 09/05/21 08:59 Last Admin: 08/06/21 09:09 Dose: 80 mg Documented by: Lisinopril/HCTZ (Lisinopril/Hctz 20/12.5mg 1 Tab Tab) 2 tab PO QAM [facility] Stop: 09/05/21 08:59 Last Admin: 08/06/21 09:09 Dose: 2 tab Documented by: Heparin Sodium/Dextrose (Heparin Sodium/Dextrose) 25,000 units in 500 mls @ 28 mls/hr IV .[id number] [facility]; Protocol Stop: 09/04/21 17:59 Last Admin: 08/06/21 12:22 Dose: 1,400 units/hr, 28 mls/hr Documented by: Metoprolol Succinate (Metoprolol Succ 25mg Ext Rel Tab) 25 mg PO DAILY [facility] Stop: 09/05/21 08:59 Morphine Sulfate (Morphine Sulfate 2 Mg/Ml Carp) 2 mg IV Q4H PRN PRN Reason: Pain Stop: 08/19/21 18:47 (1) Chest pain Chest pain type: unspecified Qualified Code(s): R07.9 - Chest pain, unspecified
--- NOTE | 2021-08-06 15:03 | Myocardial Perfusion Study ---
Date of Service August 06, 2021 Myocardial Perfusion Study [facility] Myocardial Perfusion Study Report The patient received 10.1 mCi of intravenous tech 99M sestamibi followed by resting SPECT study. The patient then received Lexiscan according to protocol. The patient's baseline EKG was within normal limits. During and following stress there were no significant EKG changes that would suggest ischemia or cardiac arrhythmias. The patient received an additional 32.1 mCi of intravenous tech 99M sestamibi during the Lexiscan protocol followed by a repeat SPECT study. The patient denied any cardiac symptoms during the study. When comparing the rest to stress sestamibi scans there is mild decreased perfusion in the inferior and inferior basilar myocardium on the stress images which is not as evident on the resting images and is consistent with mild ischemia. Gated analysis reveals normal LV function with an estimated left ventricular ejection fraction of above 65%. Overall this pharmacologic nuclear stress test reveals mild ischemia of the inferior and inferior basilar myocardium with normal LV function.
--- NOTE | 2021-08-06 17:57 | Electrocardiogram Report ---
Test Reason : Blood Pressure : / mmHG Vent. Rate : 056 BPM Atrial Rate : 056 BPM P-R Int : 240 ms QRS Dur : 092 ms QT Int : 422 ms P-R-T Axes : 049 039 036 degrees QTc Int : 407 ms Sinus bradycardia with 1st degree A-V block Otherwise normal ECG When compared with ECG of 12-NOV-2016 06:16, QT has shortened Confirmed by Agustin Haider ([id number]) on 08/06/2021 5:56:55 PM Referred By: REFERRED SELF Confirmed By:Agustin Haider
--- NOTE | 2021-08-06 21:56 | Electrocardiogram Report ---
Test Reason : Blood Pressure : / mmHG Vent. Rate : 053 BPM Atrial Rate : 053 BPM P-R Int : 238 ms QRS Dur : 086 ms QT Int : 452 ms P-R-T Axes : 039 040 042 degrees QTc Int : 424 ms Sinus bradycardia with 1st degree A-V block Otherwise normal ECG When compared with ECG of 05-AUG-2021 10:25, No significant change was found Confirmed by Agustin Haider ([id number]) on 08/06/2021 9:55:57 PM Referred By: REFERRED SELF Confirmed By:Agustin Haider
--- NOTE | 2021-08-06 22:10 | Electrocardiogram Report ---
Test Reason : Blood Pressure : / mmHG Vent. Rate : 058 BPM Atrial Rate : 058 BPM P-R Int : 242 ms QRS Dur : 090 ms QT Int : 454 ms P-R-T Axes : 042 036 048 degrees QTc Int : 445 ms Sinus bradycardia with 1st degree A-V block Otherwise normal ECG When compared with ECG of 05-AUG-2021 16:21, No significant change was found Confirmed by Agustin Haider ([id number]) on 08/06/2021 10:10:24 PM Referred By: REFERRED SELF Confirmed By:Agustin Haider
[2021-08-07] MEDS: HEPARIN SODIUM/DEXTROSE 25,000 UNITS/500 ML BAG IV SCH (05:27)
[2021-08-07 07:37] LABS: Partial Thromboplastin Ratio 3.2
[2021-08-07 07:44] LABS: Partial Thromboplastin Time 89.1 Seconds (21.0-31.0)
[2021-08-07] MEDS: ASPIRIN 81 MG ECTAB PO SCH (08:54)
[2021-08-07] MEDS: lisinopril 20 MG TAB PO SCH (08:55)
[2021-08-07] MEDS: ATORVASTATIN 40 MG TAB PO SCH (08:55)
[2021-08-07] MEDS: METOPROLOL SUCC 25MG EXT REL TAB PO SCH (08:56)
--- NOTE | 2021-08-07 13:21 | Cardiology Progress Note ---
Date of Service August 07, 2021 Assessment & Plan (1) Chest pain at rest: (2) Elevated troponin: Plan: 81-year-old male with longstanding history of coronary heart disease status post CABG x3 in 2005 at [facility]. Most recent outpatient cardiology note available for review dates back to December,. Bypass graft anatomy described as including ALVARADO to LAD, vein graft from aorta to diagonal, vein graft from aorta to obtuse marginal. The right coronary artery was not bypassed. Patient believes that the right coronary artery was not bypassed because it did not have significant disease rather than because of chronic occlusion status, but most recent cardiac catheterization data not available for review. In 2016 he underwent a nuclear stress test at [place] with concerns of a small area of lateral ischemia felt to be perhaps related to the graft to the diagonal, this was treated medically without repeat cardiac catheterization at that time. Patient now presents with abrupt onset of a single episode of chest discomfort that woke him from sleep at 4 in the morning the day of presentation was a bandlike chest discomfort across the top of his chest bilaterally and into his neck and back. Troponin borderline elevated 0.05 NG per mL x3 measurements. EKG without acute change. Nuclear stress test reveals an inferior perfusion defect, that is partially reversible, preserved LVEF. Follow-up echocardiogram revealed normal left ventricular myocardial thickness normal LVEF, 60 to 65%, no significant valvular disease. Echocardiogram images from this admission as well as nuclear perfusion images reviewed independently by the undersigned. Patient describes himself as being physically active at baseline. 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 Patient to remain hospitalized for proposed cardiac catheterization on 08/09/2021. Continue medical therapy with aspirin, metoprolol, lisinopril/HCTZ, unfractionated heparin infusion. LDL well controlled, 61 mg on his current dose of statin. Admission and Anticipated Discharge Date Admission Date: August 05, 2021 Subjective Patient seen in cardiology follow-up of chief complaint of chest discomfort. He is feeling well. Denies any recurrence. Telemetry reveals sinus rhythm in the 60s with occasional PACs and one blocked premature atrial contraction this morning. Physical Exam Physical Exam: Temp Pulse Resp BP Pulse Ox 36.6 C 61 22 100/57 L 94 08/07/21 10:54 08/07/21 10:54 08/07/21 10:54 08/07/21 10:54 08/07/21 10:54 Constitutional: WD/WN, vitals as above Respiratory: normal respiratory effort, lungs clear to auscultation Cardiovascular: RRR, no murmur, no edema Gastrointestinal (Abdomen): normal bowel sounds, soft, nontender, no hepatosplenomegaly Neurologic: PERRL, EOMI, accommodation nl, no face palsy, no dysarthria Results & Data ([facility]) Vital Signs (Past 12 Hours) Vital Signs Temp Pulse Pulse Resp BP Pulse Ox 08/07/21 10:54 36.6 C 61 22 100/57 L 94 08/07/21 08:58 67 117/66 08/07/21 07:39 36.7 C 70 14 97/66 L 96 08/07/21 06:15 57 L 08/07/21 04:18 36.8 C 65 16 111/54 L 93 Laboratory Results Coagulation 08/07/21 Range/Units 06:09 APTT 89.1 H* (21.0-31.0) Seconds Intake and Output 08/06/21 08/07/21 08/07/21 22:59 06:59 14:59 Intake Total 478.333 / 978.333 75.6 / 75.6 Output Total 225 / 225 Balance 253.333 / 753.333 75.6 / 75.6 Intake: IV 478.333 / 978.333 75.6 / 75.6 Heparin Sodium/Dextrose 25,000 478.333 / 978.333 75.6 / 75.6 units In 500 ml @ 1,400 UNITS/ HR 28 mls/hr IV .[id number] [facility] Rx #:[id number] Output: Urine 225 / 225 Other: Weight 92.3 kg Weight Measurement Method Standing Scale
--- NOTE | 2021-08-07 16:07 | Hospitalist Progress Note ---
Date of Service August 07, 2021 Assessment & Plan (1) Chest pain: (2) CAD (coronary artery disease): (3) HTN (hypertension): (4) Dyslipidemia: Plan: 81 year old male with h/o multivessel CAD s/p CABGx3 in 2009 presented to the ED with chest pain since Monday. Chest pain, concerning for UA- pain resolved on heparin drip. trop x3 at 0.05. Stress test 08/06 abnormal with mild ischemia of inferior and inferior basilar myocardium with normal LV function. Cardio plans for cardiac cath on Monday. Continue aspirin, beta rufino, statin, heparin drip Essential HTN- stable, continue prinzide, toprol HLD- continue statin DVT prophylaxis- heparin Dispo- Pending cardiac cath on Monday. Admission and Anticipated Discharge Date Admission Date: August 07, 2021 Subjective No new issues. No more chest pain, even with ambulation. No shortness of breath. No nausea, vomiting. Normal appetite. Had bowel movement. Physical Exam Physical Exam: General: Sitting comfortably in chair, not in distress, on room air HEENT: EOMI, LILIANA, MMM Chest: Clear breath sounds bilaterally, no wheezes or crackles CVS: Regular rate and rhythm, normal heart sounds, no murmur Abdomen: Soft, non tender, not distended, normal bowel sounds Neuro: Awake, alert, oriented, conversing well, non focal Extremities: No cyanosis, clubbing or edema Results & Data Results & Data ([facility]) Vital Signs (Past 12 Hours) Vital Signs Temp Pulse Pulse Resp BP Pulse Ox 08/07/21 15:39 36.5 C 54 L 19 95/69 L 96 08/07/21 14:20 60 08/07/21 10:54 36.6 C 61 22 100/57 L 94 08/07/21 08:58 67 117/66 08/07/21 07:39 36.7 C 70 14 97/66 L 96 08/07/21 06:15 57 L 08/07/21 04:18 36.8 C 65 16 111/54 L 93 Medications Administered Current Inpatient Medications Acetaminophen (Acetaminophen 325 Mg Tab) 650 mg PO Q4H PRN PRN Reason: Pain or Fever Stop: 09/04/21 15:06 Aspirin (Aspirin 81 Mg Ectab) 81 mg PO DAILY [facility] Stop: 09/05/21 08:59 Last Admin: 08/07/21 08:54 Dose: 81 mg Documented by: Atorvastatin Calcium (Atorvastatin 40 Mg Tab) 80 mg PO DAILY [facility] Stop: 09/05/21 08:59 Last Admin: 08/07/21 08:55 Dose: 80 mg Documented by: Lisinopril/HCTZ (Lisinopril/Hctz 20/12.5mg 1 Tab Tab) 2 tab PO QAM [facility] Stop: 09/05/21 08:59 Last Admin: 08/06/21 09:09 Dose: 2 tab Documented by: Heparin Sodium/Dextrose (Heparin Sodium/Dextrose) 25,000 units in 500 mls @ 25 mls/hr IV .Q20H [facility]; Protocol Stop: 09/04/21 17:59 Last Titration: 08/07/21 09:03 Dose: 1,250 units/hr, 25 mls/hr Documented by: Lisinopril (Lisinopril 20 Mg Tab) 20 mg PO QAM [facility] Stop: 09/06/21 08:59 Last Admin: 08/07/21 08:55 Dose: 20 mg Documented by: Metoprolol Succinate (Metoprolol Succ 25mg Ext Rel Tab) 25 mg PO DAILY [facility] Stop: 09/05/21 08:59 Last Admin: 08/07/21 08:56 Dose: 25 mg Documented by: Morphine Sulfate (Morphine Sulfate 2 Mg/Ml Carp) 2 mg IV Q4H PRN PRN Reason: Pain Stop: 08/19/21 18:47 (1) Chest pain Chest pain type: unspecified Qualified Code(s): R07.9 - Chest pain, unspecified
[2021-08-07 16:08] LABS: Partial Thromboplastin Ratio 2.3
[2021-08-07 16:26] LABS: Partial Thromboplastin Time 63.2 Seconds (21.0-31.0)
[2021-08-08] MEDS: HEPARIN SODIUM/DEXTROSE 25,000 UNITS/500 ML BAG IV SCH ×2 (01:12→19:35)
[2021-08-08 06:33] LABS: Partial Thromboplastin Ratio 2.4
[2021-08-08 06:35] LABS: Partial Thromboplastin Time 64.9 Seconds (21.0-31.0)
[2021-08-08] MEDS: ASPIRIN 81 MG ECTAB PO SCH (09:44)
[2021-08-08] MEDS: ATORVASTATIN 40 MG TAB PO SCH (09:44)
[2021-08-08] MEDS: lisinopril 20 MG TAB PO SCH (09:44)
[2021-08-08] MEDS: METOPROLOL SUCC 25MG EXT REL TAB PO SCH (09:45)
--- NOTE | 2021-08-08 13:39 | Cardiology Progress Note ---
Date of Service August 08, 2021 Assessment & Plan (1) Chest pain at rest: (2) Elevated troponin: Plan: 81-year-old male with longstanding history of coronary heart disease status post CABG x3 in 2005 at [facility]. Most recent outpatient cardiology note available for review dates back to December,. Bypass graft anatomy described as including ALVARADO to LAD, vein graft from aorta to diagonal, vein graft from aorta to obtuse marginal. The right coronary artery was not bypassed. Patient believes that the right coronary artery was not bypassed because it did not have significant disease rather than because of chronic occlusion status, but most recent cardiac catheterization data not available for review. In 2016 he underwent a nuclear stress test at [place] with concerns of a small area of lateral ischemia felt to be perhaps related to the graft to the diagonal, this was treated medically without repeat cardiac catheterization at that time. Patient now presents with abrupt onset of a single episode of chest discomfort that woke him from sleep at 4 in the morning the day of presentation was a bandlike chest discomfort across the top of his chest bilaterally and into his neck and back. Troponin borderline elevated 0.05 NG per mL x3 measurements. EKG without acute change. Nuclear stress test performed 08/06/21 at [facility], reveals an inferior perfusion defect, that is partially reversible, preserved LVEF. Follow-up echocardiogram revealed normal left ventricular myocardial thickness normal LVEF, 60 to 65%, no significant valvular disease. Echocardiogram images from this admission as well as nuclear perfusion images reviewed independently by the undersigned. Patient describes himself as being physically active at baseline. 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 Patient to remain hospitalized for proposed cardiac catheterization on 08/09/2021. Continue medical therapy with aspirin, metoprolol, , unfractionated heparin infusion. Hold lisinopril / HCTZ tomorrow am for cardiac cath. Discontinue heparin am of 08/09/21 at 4 am. NPO after GA. LDL well controlled, 61 mg on his current dose of statin. Admission and Anticipated Discharge Date Admission Date: August 07, 2021 Subjective Mr Reynolds is seen in cardiology follow up of his chief complaint of chest pain. Feeling well today. No recurrent symptoms. Remains on heparin infusion. Telemetry reveals Sinus bradycardia in the 50s, occasional PACs and blocked PACs. Review of Systems Review of Systems: All systems reviewed & are unremarkable except as noted in HPI & below Physical Exam Physical Exam: Temp Pulse Resp BP Pulse Ox 36.8 C 57 L 21 120/64 94 08/08/21 10:40 08/08/21 10:40 08/08/21 10:40 08/08/21 10:40 08/08/21 10:40 Constitutional: WD/WN, vitals as above Respiratory: normal respiratory effort, lungs clear to auscultation Cardiovascular: RRR, no murmur, no edema Gastrointestinal (Abdomen): normal bowel sounds, soft, nontender, no hepatosplenomegaly Neurologic: PERRL, EOMI, accommodation nl, no face palsy, no dysarthria Results & Data ([facility]) Vital Signs (Past 12 Hours) Vital Signs Temp Pulse Pulse Resp BP Pulse Ox 08/08/21 10:40 36.8 C 57 L 21 120/64 94 08/08/21 09:43 66 126/65 08/08/21 07:53 36.6 C 51 L 23 113/73 94 08/08/21 06:20 56 L 08/08/21 03:28 36.9 C 68 16 130/72 93 Laboratory Results Coagulation 08/07/21 08/08/21 Range/Units 15:12 05:54 APTT 63.2 H* 64.9 H* (21.0-31.0) Seconds Intake and Output 08/07/21 08/08/21 08/08/21 22:59 06:59 14:59 Intake Total 703.75 / 1259.35 Balance 703.75 / 1259.35 Intake: IV 403.75 / 479.35 Heparin Sodium/Dextrose 25,000 403.75 / 479.35 units In 500 ml @ 1,250 UNITS/ HR 25 mls/hr IV .Q20H [facility] Rx#: [id number] Oral 300 / 780 Other: Weight 92.4 kg Weight Measurement Method Standing Scale
--- NOTE | 2021-08-08 14:00 | Hospitalist Progress Note ---
Date of Service August 08, 2021 Assessment & Plan (1) Chest pain: (2) CAD (coronary artery disease): (3) HTN (hypertension): (4) Dyslipidemia: Plan: 81 year old male with h/o multivessel CAD s/p CABGx3 in 2009 presented to the ED with chest pain since Monday. Chest pain, concerning for UA- pain resolved on heparin drip. trop x3 at 0.05. Stress test 08/06 abnormal with mild ischemia of inferior and inferior basilar myocardium with normal LV function. Cardio plans for cardiac cath tomorrow. Continue aspirin, beta rufino, statin, heparin drip. Stop heparin drip at 4 am tomorrow for the same. Essential HTN- stable, continue toprol. Hold prinzide tomorrow am for the cath. HLD- continue statin DVT prophylaxis- heparin Dispo- Pending cardiac cath on Monday. Admission and Anticipated Discharge Date Admission Date: August 07, 2021 Subjective No new issues. No further chest pain or dyspnea since admission. Awaiting cath tomorrow. Physical Exam Physical Exam: General: Sitting comfortably in chair, not in distress, on room air HEENT: EOMI, LILIANA, MMM Chest: Clear breath sounds bilaterally, no wheezes or crackles CVS: Regular rate and rhythm, normal heart sounds, no murmur Abdomen: Soft, non tender, not distended, normal bowel sounds Neuro: Awake, alert, oriented, conversing well, non focal Extremities: No cyanosis, clubbing or edema Results & Data Results & Data ([facility]) Vital Signs (Past 12 Hours) Vital Signs Temp Pulse Pulse Resp BP Pulse Ox 08/08/21 10:40 36.8 C 57 L 21 120/64 94 08/08/21 09:43 66 126/65 08/08/21 07:53 36.6 C 51 L 23 113/73 94 08/08/21 06:20 56 L 08/08/21 03:28 36.9 C 68 16 130/72 93 (1) Chest pain Chest pain type: unspecified Qualified Code(s): R07.9 - Chest pain, unspecified
[2021-08-09] MEDS ORDERED: [UNRECOGNIZED DRUG - REMARK] ONE (04:00)
[2021-08-09 07:36] LABS: Hematocrit (blood only) 39.7 % (42-52); Hemoglobin 14.1 g/dL (14.0-18.0); Mean Corpuscular Hemoglobin 32.8 pg (25-34); Mean Corpuscular Hgb Conc 35.5 g/dL (32-36); Mean Corpuscular Volume 92.3 fL (80-100); Mean Platelet Volume 9.1 fL (7.4-10.4); Platelet Count 208 K/uL (130-400); RDW Coefficient of Variation 13.5 % (11.5-14.5); RDW Standard Deviation 45.3 fL (36.4-46.3); White Blood Count 7.67 K/uL (4.8-10.8)
[2021-08-09 08:02] LABS: Albumin Globulin Ratio 1.3 (0.9-2); Albumin Level 4.1 gm/dl (3.4-5.0); BUN Creatinine Ratio 24.5 (10-20); Calcium 9.5 mg/dl (8.5-10.1); Creatinine Clr Calc Pharmacy 67.4 ml/min; Est GFR (African American) 84.6 ml/min; Globulin 3.1 gm/dl (2.5-4.0); Potassium 4.2 mmol/L (3.5-5.1); Total Protein 7.2 gm/dl (6.0-8.3)
--- NOTE | 2021-08-09 08:34 | Electrocardiogram Report ---
Test Reason : Blood Pressure : / mmHG Vent. Rate : 067 BPM Atrial Rate : 067 BPM P-R Int : 212 ms QRS Dur : 094 ms QT Int : 422 ms P-R-T Axes : 039 041 035 degrees QTc Int : 445 ms Sinus rhythm with 1st degree A-V block with Premature supraventricular complexes Otherwise normal ECG When compared with ECG of 06-AUG-2021 05:33, Premature supraventricular complexes are now Present Confirmed by Samuel Mathis ([id number]) on 08/09/2021 8:34:00 AM Referred By: REFERRED SELF Confirmed By:Austin Mathis
--- NOTE | 2021-08-09 09:00 | Cardiology Progress Note ---
Date of Service August 09, 2021 Assessment & Plan (1) Abnormal nuclear stress test: (2) Elevated troponin: (3) CAD (coronary artery disease): Plan: 81-year-old patient presented to the emergency department with chest and back pain. Troponin mildly elevated. Lexiscan nuclear stress test performed for further with stratification demonstrating inferior ischemia. Treated with intravenous heparin over the weekend without recurrent symptoms. Medical management versus further ischemic evaluation with cardiac catheterization discussed. The risks of procedure reviewed. Patient agreeable to proceed with coronary angiography, bypass angiography, and left heart catheterization today. Further recommendations pending results of procedure. Admission and Anticipated Discharge Date Admission Date: August 07, 2021 Subjective Patient seen examined the bedside. Feeling well this morning. IV heparin discontinued at 4 AM. Denies recurrent chest or back discomfort over the past 48 hours. Troponin mildly elevated. Describes right-sided chest pain rating to his back occurring last week. The discomfort came on during sleep. No recurrence at this time. Denies exertional chest pain or unusual shortness of breath. Lexiscan nuclear stress test performed on Monday revealing inferior ischemia. History of coronary artery bypass grafting x3 in 2005 with ALVARADO to LAD, SVG to diagonal, and SVG to OM. Per review of records, a Lexiscan nuclear stress test was performed at [facility] in the past demonstrating lateral wall ischemia suggestive of diagonal branch vessel occlusion. A repeat catheterization was not pursued at that time. Currently, patient resting comfortably. Offers no concerns/complaints. Review of Systems Review of Systems: All systems reviewed & are unremarkable except as noted in Subjective Physical Exam Constitutional: well developed and well nourished; no acute distress Respiratory: normal respiratory effort, lungs clear to auscultation Cardiovascular: Rate/Rhythm: regular rate and regular rhythm Heart Sounds: normal S1 and normal S2; no murmur Vessels: femoral pulses present; no JVD and no carotid bruit Gastrointestinal (Abdomen): Inspection/Auscultation: abdomen normal to inspection and normal bowel sounds; abdomen not distended Percussion/Palpation: abdomen soft; abdomen nontender, no guarding and abdomen not rigid Neurologic: CN's II-XI intact bilaterally and moves all extremities; no focal motor deficits Motor/Sensory: no tremor Psychiatric: A+Ox3, euthymic affect Results & Data ([facility]) Vital Signs (Past 12 Hours) Vital Signs Temp Pulse Pulse Resp BP Pulse Ox 08/09/21 08:12 36.8 C 61 16 135/70 93 08/09/21 03:25 36.8 C 58 L 22 125/68 94 08/08/21 23:58 36.7 C 60 16 148/73 H 95 08/08/21 23:07 61
[2021-08-09] MEDS ORDERED: MIDAZOLAM HCL 1 MG/ML 2ML VIAL ONE (09:19)
[2021-08-09] MEDS ORDERED: HEPARIN (PORCINE) 1000 UNIT/ML 10 ML (CATH LAB USE ONLY) ONE (09:19)
[2021-08-09] MEDS ORDERED: fentaNYL citrate 100 MCG/2 ML VIAL ONE (09:19)
[2021-08-09] MEDS ORDERED: niCARdipine HCL INJ 2.5 MG/ML 10 ML AMP ONE (09:19)
--- NOTE | 2021-08-09 09:19 | Pre Anesthesia Assessment ---
Date of Service August 09, 2021 Pre Sedation Assessment Vital Signs Temp Pulse Pulse Resp BP Pulse Ox 08/09/21 08:12 36.8 C 61 16 135/70 93 08/09/21 03:25 36.8 C 58 L 22 125/68 94 08/08/21 23:58 36.7 C 60 16 148/73 H 95 08/08/21 23:07 61 08/08/21 19:50 37.0 C 56 L 22 156/83 H 94 08/08/21 15:34 36.6 C 55 L 17 100/66 93 08/08/21 14:20 61 08/08/21 10:40 36.8 C 57 L 21 120/64 94 08/08/21 09:43 66 126/65 Cardiovascular RRR, no murmur, no edema no JVD and no carotid bruit no edema Respiratory + respiratory effort normal; no respiratory distress, no labored breathing and no retractions + clear to auscultation bilaterally; no crackles, no rales, no rhonchi and no wheezes Pre-Sedation Airway Assessment Smoking Status: Former smoker 2 ASA: ASA3 NPO Status Date of Last Intake of Fluids: 08/08/21 Date of Last Intake of Solid Food: 08/08/21 Procedure Planning Contraindications for Sedation: none Current Medications Reviewed: Yes Notes The planned sedation has been discussed with the patient. Informed Consent was obtained. I have identified the patient, determined the appropriateness of sedation and have assessed the patient immediately prior to the procedure. All medicine(s) and interventions are by my order.
[2021-08-09] MEDS ORDERED: NITROGLYCERIN/D5W 100MCG/ML 20ML SYR ONE (09:20)
--- NOTE | 2021-08-09 10:24 | Electrocardiogram Report ---
Test Reason : Blood Pressure : / mmHG Vent. Rate : 067 BPM Atrial Rate : 067 BPM P-R Int : 212 ms QRS Dur : 094 ms QT Int : 422 ms P-R-T Axes : 039 041 035 degrees QTc Int : 445 ms Sinus rhythm with 1st degree A-V block with Premature supraventricular complexes Otherwise normal ECG When compared with ECG of 06-AUG-2021 05:33, Premature supraventricular complexes are now Present Confirmed by Samuel Mathis ([id number]) on 08/09/2021 8:34:00 AM Also confirmed by Samuel Mathis ([id number]), editor magazine Goran Barker ([id number]) on 08/09/2021 10:24:08 AM Referred By: REFERRED SELF Confirmed By:Austin Mathis
--- NOTE | 2021-08-09 10:39 | Post Anesthesia Assessment ---
Date of Service August 09, 2021 Post Sedation Assessment Vital Signs Temp Pulse Pulse Resp BP Pulse Ox 08/09/21 08:12 36.8 C 61 16 135/70 93 08/09/21 08:00 62 08/09/21 03:25 36.8 C 58 L 22 125/68 94 08/08/21 23:58 36.7 C 60 16 148/73 H 95 08/08/21 23:07 61 08/08/21 19:50 37.0 C 56 L 22 156/83 H 94 08/08/21 15:34 36.6 C 55 L 17 100/66 93 08/08/21 14:20 61 08/08/21 10:40 36.8 C 57 L 21 120/64 94 Recovery Score Activity: Moves 4 extremities Respiration: Deep Breath/Cough Circulation: +/-20% PreAnes Value Consciousness: Fully Awake Oxygen Saturation: > 92% On Room Air Discharge Sedation Level of Care: Phase I Post Sedation Plan On clinical assessment, the patient appears to have tolerated the sedation without complications. Patient is recovering as anticipated. Patient will continue to be monitored by nursing and may be discharged when sedation discharge criteria are met per below protocol. Upon Completions of procedure up to 15 minutes continue every 5 minute vital signs and the P.A.R. score; then discharge to a Phase I or Fast Track to Phase II per the following guidelines: * Discharge Patient to appropriate Phase II area if PAR is 8 or greater or return to pre- procedure baseline. The post - procedure orders will be as directed. * If PAR score is less than 8 or not return to pre-procedure baseline then patient will follow Phase I monitoring till PAR is reached for Phase II. The Phase I may be done in procedure room or may call to secure a Phase I area. * If naloxone or flumazenil are used for reversal, hold in Phase I for continued monitoring from when last reversal dose was given for a minimum of 60 minutes or longer pending the nurse and/or physician discretion of patient condition before discharge to Phase II. Please call the Sedation Physician to re-evaluate and complete post-note for discharge to Phase II area. Do NOT discharge from procedure sedation or Phase 1 until post- sedation evaluation note is complete by procedure /sedation MD Sedation Discharge Instructions to be given to the patient at discharge to home.
--- NOTE | 2021-08-09 10:55 | Cardiac Catheterization ---
Cardiac Cath Procedure Full Procedure Date August 09, 2021 Pre-Procedure Diagnosis Pre-Procedure Diagnosis: Angina, Positive Stress Test and CAD AUC Score AUC Score: 8 Post-Procedure Diagnosis Post-Procedure Diagnosis: Severe CAD Procedure(s) Performed Procedure(s) Performed: Coronary Angiography and Bypass Graft Angiography Chain Maker Loom Control Beto Kitchen DO Fixed Wing Pilot(s) Juliocesar ELIGIBILITY SERVICES REPRESENTATIVE Estimated Blood Loss Estimated Blood Loss: 8cc Medication(s) Medication(s): Lidocaine 1%, Lorazepam and Versed Summary of Findings Severe calcific RCA disease. Severe distal left main stenosis. Patent ALVARADO - LAD Patent SVG - OM1 patent SVG - D1 Hemodynamics Rest Ao:: 143/56/84 Final Ao: 172/67/106 LV: N/A Recommendations Recommendations: Management Recommendatons (Patient will need rotational atherectomy for treatment of calcific RCA stenosis. Unable to perform at this facility. Will discuss further with tertiary care facility.) Radiation Exposure (mGy) 1277 Contrast (mls) 130cc Fluids (cc crystalloids) Fluids (cc crystalloids): 143 Nss Drains Drains: N/A Anesthesia Moderate sedation. Start 0939. End 1034. Sedation Monitor : Monika BENITEZ Procedural Complication(s) None Disposition Assistant Family Teacher Holding/Recovery I attest to the content of the Intraoperative Record and any orders documented therein. Any exceptions are noted below. ACC Data: Assistant Family Teacher Cardiac Status Clinical evaluation leading to the procedure 81-year-old patient with history of remote coronary artery bypass grafting x3 presented to the ER with chest and back pain. Troponins minimally elevated. Lexiscan nuclear stress test demonstrating inferior ischemia. CAD Presenation: Unstable angina Anginal Classification: CCS IV Heart Failure: No Imaging Studies Past 6 Months: Yes Stress Studies Past 6 Months: Yes Stress Testing w/SPECT MPI: Yes - Positive and Risk/Extent of Ischemia (High) Coronary Anatomy Dominant: Right Left Main (% Stenosis): Distal (90%) LAD (% Stenosis): Ostial (80%), Mid (Competitive flow from RAJAN graft. Luminal irregularities, 10%. Small vessel.) and Distal (Mild luminal irregularities) D1 (% Stenosis): Normal (Small, 1 mm vessel) D2 (% Stenosis): Mid (Competitive flow visualized) and Normal Circumflex (% Stenosis): Proximal (40%) and Mid (50%) OM1 (% Stenosis): Mid (Competitive flow) and Normal L PL1 (% Stenosis): Mid (small vessel, 30% diffuse) and Distal (30% diffuse) L PDA (% Stenosis): Normal RCA (% Stenosis): Ostial (severely calcifed. 60-70%), Mid (severe calcification, 80% early mid, 80% late mid) and Distal (70%) Grafts - LAD (%): Normal Grafts - Circumflex (%): Mid (Luminal irregularities, 10%) Grafts - Ramus (%): Proximal (20%) and Mid (SVG to diagonal branch vessel with 30% mid stenosis) Diagnostic Physicians Name: Beto Kitchen DO Closure Device Closure Device: Mynx Recommendations: Management Recommendatons (Patient will need rotational atherectomy for treatment of calcific RCA stenosis. Unable to perform at this facility. Will discuss further with tertiary care facility.) Intraprocedure Events Significant Disection: No Perforation: No
[2021-08-09] MEDS ORDERED: ISOSORBIDE MONO EXTENDED REL 30 MG TABCR PO SCH (11:30)
[2021-08-09] MEDS ORDERED: CLOPIDOGREL BISULFATE 75 MG TAB PO SCH (11:45)
[2021-08-09] MEDS: ATORVASTATIN 40 MG TAB PO SCH (12:45)
[2021-08-09] MEDS: ASPIRIN 81 MG ECTAB PO SCH (12:45)
--- NOTE | 2021-08-09 14:14 | Cardiology Progress Note ---
Date of Service August 09, 2021 Assessment & Plan (1) Chest pain: (2) Abnormal nuclear stress test: Plan: -Patient found to have patent bypass grafts at time of cardiac catheterization with heavily calcified RCA stenosis. -Dr Kitchen discussed case with interventional cardiology at [facility] and [facility]. Lesion felt to be technically complex, best addressed with option of rotational atherectomy at tertiary center such as [facility]. -Arrangements made for patient to have procedure there on 08/19. -If patient remains asymptomatic, stable for discharge home after he completes post catheterization progression. -Pt to abstain from work (physical labor) exercise, and sexual activity pending planned PCI 08/19/21. -He is aware to return to the local ED should he have recurrence of angina in the meantime. -Discussed with Dr Montenegro of hospitalist service in person. Medication plan for discharge: ASA 81 mg daily Clopidogrel 75 mg daily (new medication) Imdur 30 mg PO daily (new medication) atorvastatin 80 mg daily Prior to hospital dose of metoprolol / HCTZ. 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 Admission and Anticipated Discharge Date Admission Date: August 07, 2021 Subjective Pt reassessed in room 208 having undergone diagnostic cardiac catheterization via right femoral artery approach this am. Pt feeling well. SR in the 60s noted. Physical Exam Physical Exam: Temp Pulse Resp BP Pulse Ox 36.8 C 64 16 139/86 95 08/09/21 11:00 08/09/21 12:30 08/09/21 12:30 08/09/21 12:30 08/09/21 12:30 Results & Data ([facility]) Vital Signs (Past 12 Hours) Vital Signs Temp Pulse Pulse Resp BP BP Pulse Ox 08/09/21 12:30 64 16 139/86 95 08/09/21 12:00 16 132/88 95 08/09/21 11:45 63 16 145/87 H 96 08/09/21 11:30 64 16 138/74 95 08/09/21 11:15 16 132/88 96 08/09/21 11:00 36.8 C 59 L 16 158/77 H 95 08/09/21 10:50 56 L 17 147/83 H 95 08/09/21 10:43 60 17 134/80 95 08/09/21 08:12 36.8 C 61 16 135/70 93 08/09/21 08:00 62 08/09/21 03:25 36.8 C 58 L 22 125/68 94 (1) Chest pain Chest pain type: unspecified Qualified Code(s): R07.9 - Chest pain, unspecified
--- NOTE | 2021-08-09 15:14 | Discharge Summary ---
Date of Service August 09, 2021 Admission HPI Per Admitting Provider This is a 81 y/o male with a PMH of CAD s/p CABG, HTN, dyslipidemia, OA, nephrolithiasis, and bilateral carotid artery stenosis who presents to the ED with chest pain x 3-4 days. He reports he had a CABG in 2009 and has done well since then. He does not recall his last stress test but reports it was likely several years ago. 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 On Monday (three days ago), he started abruptly with chest pain - was sleeping and had the sudden onset of chest discomfort across his entire chest and radiating to his right neck. Associated feeling of impen ding doom. The worst of the discomfort lasted a few minutes and then pain become more sharp in his chest and radiated to his back. Pain is worse with exertion. Pain has not improved over time so pt saw PCP yesterday who recommended ED evaluation. Pt decided to come to the ED today because of the persistent nature of his symptoms. No associated diaphoresis, dizziness, nausea. Some residual numb sensation in his right neck. No WALDRON. No fevers, chills, unexplained wt changes. He has not noted edema peripherally but he was told to cut back on salt at last PCP visit because the PCP did. Admission Exam Per Admitting Provider Constitutional: well developed and well nourished; no acute distress Eyes: PERRL, conjunctivae normal, anicteric sclerae Neck: trachea midline Respiratory: no respiratory distress and no labored breathing Auscultation: lungs clear to auscultation bilaterally; no rales, no rhonchi and no wheezes Cardiovascular: Rate/Rhythm: regular rate and regular rhythm Heart Sounds: no gallop, no murmur and no cardiac rub Vessels: dorsalis pedis pulses present and radial pulses present; no carotid bruit Extremities: normal capillary refill; no pedal edema Gastrointestinal (Abdomen): Inspection/Auscultation: normal bowel sounds; abdomen not distended Percussion/Palpation: abdomen soft; abdomen nontender Musculoskeletal: Head/Neck/Chest: normocephalic, head atraumatic and neck supple Skin: no rashes, warm and dry Neurologic: moves all extremities; no focal motor deficits Psychiatric: A+Ox3, euthymic affect Principal Diagnosis Chest pain, CAD Discharge Exam General: Sitting comfortably in chair, not in distress, on room air HEENT: EOMI, LILIANA, MMM Chest: Clear breath sounds bilaterally, no wheezes or crackles CVS: Regular rate and rhythm, normal heart sounds, no murmur Abdomen: Soft, non tender, not distended, normal bowel sounds Neuro: Awake, alert, oriented, conversing well, non focal Extremities: No cyanosis, clubbing or edema. Groin intact with no bleeding. Discharge Data Allergies Allergy/AdvReac Type Severity Reaction Status Date / Time No Known Allergies Allergy Unverified 08/05/21 13:17 Consultations 08/05/21 12:50 ED Decision to Admit Stat 08/05/21 14:29 Consult Cardiology Routine Procedures Performed Operation Date: 08/09/21 12:30 Actual Procedures p Cath, Cors with Grafts (no LV) - DO nilo Davis Cineradiography w/Routine Exam - DO nilo Davis Placement Art Occlusive Device - Beto Kitchen DO Ordered Studies 08/05/21 10:50 CT angio chest PE protocol Stat 08/09/21 06:56 CL Cath Imgs for PACS use only Routine Hospital Course (1) Chest pain: (2) CAD (coronary artery disease): (3) HTN (hypertension): (4) Dyslipidemia: 81 year old male with h/o multivessel CAD s/p CABGx3 in 2009 presented to the ED with chest pain since Monday. Chest pain, CAD- resolved. S/p heparin drip. trop x3 at 0.05. Stress test 08/06 abnormal with mild ischemia of inferior and inferior basilar myocardium with normal LV function. Cardiac cath today showed patent bypass grafts with heavily calcified RCA stenosis. Case was discussed by cardio with intervention cardiology at [facility] and [facility]. Lesion was felt to be technically complex and best addressed with option of rotational atherectomy at tertiary center such as [facility]. Arrangement made for patient to have procedure on 08/19. Cardiology recommendations noted. - Continue aspirin, plavix, statin, imdur. Metoprolol discontinued per cardio due to bradycardia and Mobitz type 1 heart block Essential HTN- stable, continue prinzide. Hold metoprolol. HLD- continue statin- dose increased. Total Time Total Time Spent Total Time Spent (In Minutes): 35 Discharge Plan Discharge Items Patient Disposition: Home - Self-Care Reason For Visit: CHEST PAIN Discharge Diagnosis: Chest pain, CAD Activity: As commented below Non-emergency contact: Traffic Monitor Specialist Call non-emergency contact if: you have any medication questions and your symptoms worsen Follow-up/Referrals: Riccardo Goff MD [Primary Care Provider] - Diet: Heart Healthy Addtl Attending Provider Instructions: STOP YOUR METOPROLOL. New medications- plavix, imdur Increase dose to lipitor to 80 mg daily Follow up with cardiology on 08/19 for the cardiac procedure ACTIVITY RECOMMENDATIONS: It is common to feel weak and fatigue for a few days. * Do not drive or operate any motorized equipment for the next three days. * Limit stair usage (2 or 3 trips a day only) for the next three days. * Do not lift anything heavier than 10 pounds for the next three days. * Do not engage in vigorous exercise or any sports until after cardiology follow up. * You may shower the day after your procedure, but do not immerse the area for three days. Cleanse the site gently with soap and water. SPECIAL CARE INSTRUCTIONS: * You may replace the pressure dressing or band-aid the morning after the procedure. * After your procedure, it is normal to have a small bruise or small lump at the site. Examine your site daily for any change in the bruise or lump, redness, swelling, drainage or numbness. Notify your doctor if any change. BLEEDING: * If there is a small amount of bleeding at the site, lie down and apply firm pressure with a clean cloth for ten minutes. When the bleeding stops, lie quietly keeping the procedure limb straight for six hours. Notify your doctor as soon as possible. * If the bleeding does not stop after ten minutes or if there is a large amount of bleeding or spurting, call 911 immediately. Continue to lie down and hold firm pressure until help arrives. SKIN IRRITATION: * You may experience some redness and/or swelling in the area where radiation was administered. If any skin irritation occurs, please contact your family physician. FOLLOW UP VISIT: Keep any scheduled doctor appointments. Pending Studies at Discharge: No Stand-Alone Forms: My [employer]imization, Smoking Cessation Medications and DC Order Prescriptions: New isosorbide mononitrate 30 mg Tablet Extended Release 24 Hr 30 mg PO QAM Qty: 30 RF: 0 clopidogrel 75 mg Tablet 75 mg PO QAM Qty: 30 RF: 0 Continued lisinopril-hydrochlorothiazide 20-12.5 mg tablet 2 tab PO QAM RF: 0 aspirin [Aspir-Low] 81 mg Tablet,Delayed Release (Dr/Ec) 81 mg PO DAILY RF: 0 Vitamin B-12 50 mcg Tablet 0 mcg PO DAILY RF: 0 nitroglycerin [Nitrostat] 0.4 mg Tablet, Sublingual 0 mg sublingual UD PRN (Reason: Chest Pain) RF: 0 cholecalciferol (vitamin D3) [Vitamin D3] 25 mcg (1,000 unit) Tablet 0 mcg PO DAILY RF: 0 potassium 99 mg Tablet 99 mg PO DAILY RF: 0 Changed atorvastatin 40 mg tablet 80 mg PO DAILY Qty: 30 RF: 0 Discontinued metoprolol succinate 25 mg tablet extended release 24 hr 25 mg PO DAILY RF: 0 Discharge Orders: Discharge Order (Routine); Ordered 08/09/21 Ordered By: Jese Montenegro Admission Data Admit Date/Time: 08/07/21 15:18 Attending Provider: Jese Montenegro Admit Provider: Myra Berger Primary Care Provider: Riccardo Goff Other Providers: Myra Berger ; Ki Prince
== END 2021-08-09 15:55 | disposition home or self-care (01) | DRG 287 ==
LOC: EDINP 10:09 → ED 10:09 → SUATTDRO 13:01 → 2E 15:06
PROC: CLB.CCG (2021-08-09 12:30)
DX: K21.9 Gastro-esophageal reflux disease without esophagitis; Z87.891 Personal history of nicotine dependence; Z95.1 Presence of aortocoronary bypass graft; Z79.82 Long term (current) use of aspirin; Z87.442 Personal history of urinary calculi; E78.5 Hyperlipidemia, unspecified; I10 Essential (primary) hypertension; I25.110 Atherosclerotic heart disease of native coronary artery with unstable angina pectoris; M17.9 Osteoarthritis of knee, unspecified; I44.1 Atrioventricular block, second degree